=== PATIENT | male | born 1950 | race Caucasian/White ===

== ENCOUNTER → 2019-02-17 | Outpatient (CLI) | payer OTHER, SELFPAY ==
--- NOTE | 2019-02-17 18:30 | RAD_ITS ---
STUDY: X-RAY - LUMBAR SPINE REASON FOR EXAM: Male, 69 years old. Low back pain TECHNIQUE: 3 view(s) of the lumbar spine were obtained. COMPARISON: None FINDINGS: Normal lumbar lordosis. There is no substantial scoliosis. There is a normal alignment of the vertebrae. No evidence for acute fracture or subluxation. There is multilevel chronic wedging of the vertebral bodies, narrowing of the disc spaces and endplate spurring. There is also facet arthropathy at L4-5 and L5-S1. The soft tissue structures are unremarkable. RAD/Lumbar Spine 2 or 3 Views IMPRESSION: Advanced spondylosis. No evidence for acute fracture or subluxation Electronically Signed: Tao Hubbard MD at 18:55 EDT , Service support ,
== END | disposition home or self-care (01) ==
PROVIDERS: Family Provider Family Medicine; PCP Family Medicine; Referring Provider Anesthesiology Pain Medicine; Visit Provider Anesthesiology Pain Medicine
DX: M54.9 Dorsalgia, unspecified (principal)
CPT/HCPCS: 72100

== ENCOUNTER → 2019-03-03 06:22 | Outpatient (CLI) | payer OTHER, SELFPAY ==
--- NOTE | 2019-03-03 06:38 | MRI_ITS ---
STUDY: MRI LUMBAR SPINE WITHOUT CONTRAST REASON FOR EXAM: Male, 69 years old. Lower back pain. Left leg pain TECHNIQUE: Standardized fat and water weighted pulse sequences were obtained in the sagittal and axial planes. COMPARISON: None FINDINGS: T12-L1: Normal endplates. Normal disc height, hydration and morphology. Normal bilateral facet joints. Normal central canal and bilateral lateral recesses. Normal bilateral intervertebral neural foramina. Normal lumbar lordosis. There is no substantial scoliosis. Normal conus medullaris that terminates at the L1 level. L1-2: Endplate spondylosis. Decreased disc height and small circumferential disc bulge. Degenerative changes of the bilateral facet joints. Mild narrowing of the central canal and bilateral intervertebral neural foramina. L2-3: Normal endplates. Normal disc height, hydration and morphology. Normal bilateral facet joints. Normal central canal and bilateral lateral recesses. Normal bilateral intervertebral neural foramina. L3-4: Endplate spondylosis. Decreased disc height and small circumferential disc bulge. Degenerative changes of the bilateral facet joints. Moderate narrowing of the central canal and bilateral intervertebral neural foramina. L4-5: Endplate spondylosis. Decreased disc height and small circumferential disc bulge. Degenerative changes of the bilateral facet joints. Mild narrowing of the central canal and moderate narrowing of the bilateral intervertebral neural foramina. L5-S1: Endplate spondylosis. Decreased disc height and small circumferential disc bulge. Degenerative changes of the bilateral facet joints. Mild narrowing of the central canal and severe narrowing of the bilateral intervertebral neural foramina. Normal visualized sacral ala. There is a right renal cyst. MRI/Spine Lumbar (Routine) IMPRESSION: Multilevel degenerative changes, as described above. There is a right renal cyst measures 3 cm. Electronically Signed: Casper Bo, at 7:35 EDT Tel , Service support ,
== END ==
PROVIDERS: Family Provider Family Medicine; PCP Family Medicine; Referring Provider Anesthesiology Pain Medicine; Visit Provider Anesthesiology Pain Medicine
DX: M54.9 Dorsalgia, unspecified (principal); M79.606 Pain in leg, unspecified
CPT/HCPCS: 72148

== ENCOUNTER → 2019-03-18 16:00 | Outpatient (CLI) | payer OTHER, SELFPAY ==
--- NOTE | 2019-03-18 16:03 | RAD_ITS ---
STUDY: X-RAY - PELVIS AND LEFT HIP REASON FOR EXAM: Male, 69 years old. Severe left hip pain, no injury TECHNIQUE: 3 views of the pelvis and hip. COMPARISON: None. FINDINGS: There is a non-specific bowel gas pattern. Normal visualized soft tissue structures. Normal bilateral iliac wings, sacroiliac joints and visualized sacrum. Normal bilateral superior and inferior pubic rami. Normal pubic symphysis. Normal bilateral ischial tuberosities. There are severe arthritic changes of the left hip joint. There is flattening, sclerosis and remodeling of the left femoral head and sclerosis with hypertrophic degenerative change of the left acetabulum. The right hip joint appears within normal limits. There are mild degenerative changes of the visualized lower lumbar spine. RAD/HIP, UNI W/ Pelvis 2-3 Views IMPRESSION: Severe osteoarthritic changes of the left hip. There is no evidence of fracture, dislocation, or lytic or blastic osseous process. Electronically Signed: Kingston Soria MD at 23:46 EDT , Service support ,
== END ==
PROVIDERS: Family Provider Family Medicine; PCP Family Medicine; Referring Provider Anesthesiology Pain Medicine; Visit Provider Anesthesiology Pain Medicine
DX: M25.552 Pain in left hip (principal)
CPT/HCPCS: 73502

== ENCOUNTER → 2019-04-30 13:13 | Outpatient (CLI) | payer OTHER, SELFPAY ==
[2019-04-30 09:40] VITALS: BMI 37.2
--- NOTE | 2019-04-30 13:14 | RAD_ITS ---
STUDY: X-RAY - PELVIS AND LEFT HIP REASON FOR EXAM: Male, 69 years old. Pain. TECHNIQUE: 4 views of the pelvis and hip. COMPARISON: None. FINDINGS: There is a non-specific bowel gas pattern. Normal visualized soft tissue structures. There is narrowing with cortical sclerosis and osteophyte formation of the sacroiliac joint consistent with degenerative osteoarthritic changes. Normal bilateral superior and inferior pubic rami. There are degenerative changes of the pubic symphysis with articular narrowing and sclerosis. Normal bilateral ischial tuberosities. Left hip: There is deformity of the left femoral head with sclerosis and subchondral cysts, more severe along the superior articular surface. There is deformity with the osteopenia, subchondral cysts and subarticular sclerosis of the acetabulum. is severe articular joint space narrowing of the hip. RAD/HIP, UNI W/ Pelvis 2-3 Views IMPRESSION: Severe degenerative disease of the left hip. Electronically Signed: Mary Ariza MD at 2:44 EST , Service support ,
== END ==
LOC: HPRAD 13:13
PROVIDERS: Family Provider Family Medicine; PCP Family Medicine; Referring Provider Orthopaedic Surgery; Visit Provider Orthopaedic Surgery
DX: M25.552 Pain in left hip (principal)
CPT/HCPCS: 73502

== ENCOUNTER 2019-05-14 18:00 | Outpatient (RCR) | payer OTHER, SELFPAY ==
[2019-04-30 09:40] VITALS: BMI 37.2
== END 2019-05-14 19:00 | disposition home or self-care (01) ==
LOC: PT 18:00
PROVIDERS: Family Provider Family Medicine; PCP Family Medicine; Referring Provider Orthopaedic Surgery; Visit Provider Orthopaedic Surgery
DX: M47.896 Other spondylosis, lumbar region (principal)
CPT/HCPCS: 97012; 97110; 97161

== ENCOUNTER → 2019-06-27 16:37 | Outpatient (CLI) | payer MEDICARE, OTHER, SELFPAY ==
[2019-06-11 08:42] VITALS: BMI 37.2
--- NOTE | 2019-06-27 16:39 | CT_ITS ---
STUDY: CT BILATERAL HIPS T PELVIS REASON FOR EXAM: Male, 69 years old. Treatment planning protocol CT RADIATION DOSAGE (If Supplied By Facility): CTDIvol = ( 26.63 ) mGy, DLP = ( 1997.37 ) mGycm TECHNIQUE: Transaxial imaging of the pelvis and bilateral hips was performed with oral contrast, and without intravenous administration of contrast material. Individualized dose optimization techniques were used for this CT. COMPARISON: None. FINDINGS: Treatment planning measurement CT was performed. 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 There is xleo-[id number]-irgufrcc subchondral cystic degenerative change in the superior acetabulum. The rest of the bones of the pelvis are intact and located. Soft tissues are unremarkable. CT/Extremity Lower without Contra IMPRESSION: 1. Treatment planning scan. 2. End-stage degenerative change of the left hip. Electronically Signed: Amie Ny, at 19:18 EST Tel , Service support ,
--- NOTE | 2019-06-27 17:00 | CT_ITS ---
STUDY: CT BILATERAL KNEE WITHOUT CONTRAST REASON FOR EXAM: Male, 69 years old. FAREED REID DESI PLANNING FOR ROBOTIC REID OF LT SIDE, C/O LT HIP PAIN RADIATION DOSAGE (If Supplied By Facility): CTDIvol = ( 26.63 ) mGy, DLP = ( 1997.37 ) mGycm TECHNIQUE: Transaxial CT imaging of the knee was performed. Coronal and sagittal images were reformatted. Individualized dose optimization techniques were used for this CT. COMPARISON: None. FINDINGS: Both knees were scanned simultaneously. Both knees are intact and located with moderate to advanced degenerative changes in all 3 compartments. There is a cystic degenerative cavity in the left lateral femoral condyle. CT/Extremity Lower without Contra IMPRESSION: Bilateral degenerative changes for preoperative treatment planning. Left lateral femoral condyle subchondral cystic cavity. Electronically Signed: Amie Ny, at 19:16 EST Tel , Service support ,
== END ==
PROVIDERS: Family Provider Family Medicine; PCP Family Medicine; Referring Provider Orthopaedic Surgery; Visit Provider Orthopaedic Surgery
DX: M16.12 Unilateral primary osteoarthritis, left hip (principal)
CPT/HCPCS: 73700

== ENCOUNTER → 2019-07-02 11:42 | Outpatient (CLI) | payer MEDICARE, OTHER, SELFPAY ==
[2019-06-11 08:42] VITALS: BMI 37.2
--- NOTE | 2019-07-02 11:49 | RAD_ITS ---
STUDY: X-RAY CHEST REASON FOR EXAM: Male, 69 years old. Pre op evaluation TECHNIQUE: Complete chest, minimum of four views COMPARISON: None. FINDINGS: Cardiac silhouette unremarkable. Pulmonary vascularity unremarkable. Aorta unremarkable. No focal airspace consolidation. Question small noncalcified nodules right mid lung measuring up to 5 mm. No pleural effusions. Upper abdomen unremarkable. Visualized spine demonstrates multilevel degenerative disease. No pneumothorax. RAD/Chest PA and Lateral IMPRESSION: No acute cardiopulmonary findings. Question pulmonary nodules. Consider chest CT as clinically indicated. Electronically Signed: Rosendo Jimenez, at 12:21 EST Tel , Service support ,
[2019-07-02 14:24] LABS: Hematocrit 44.3 % (40-54); Hemoglobin 15.6 g/dL (13.0-16.5); Mean Corp Hgb Conc 35.2 g/dL (32-36); Mean Corpuscular Hgb 30.6 pg (27.0-32.0); POSITIVE COUNT YES; RBC Distribution Width SD 38.4 fl (35.1-43.9); Red Blood Count 5.09 M/mm3 (4.6-6.2); White Blood Count 11.2 K/mm3 (4.4-11.0)
[2019-07-02 14:27] LABS: International Normalized Ratio 1.1; Prothrombin Time (Protime)PT. 14.1 SECONDS (11.7-14.9)
[2019-07-02 14:28] LABS: Partial Thromboplast Time 42.2 Seconds (24.1-36.2)
[2019-07-02 14:45] LABS: ALB/GLOB Ratio 1.1 RATIO (0.9-2.4); AST(SGOT) 14 U/L (15-37); Alanine Aminotransfer ALT/SGPT 32 U/L (16-61); Albumin, Serum 3.9 g/dL (3.2-5.0); Alkaline Phosphatase 83 U/L (45-117); Anion Gap 6 (5-15); BUN 16 mg/dL (7-18); BUN/Creat Ratio 16.6 RATIO (10-20); Calcium,Total 8.8 mg/dL (8.5-10.1); Chloride 106 mmol/L (98-107); Creatinine, Serum 0.96 mg/dL (0.70-1.30); EST Glomerular Filtration Rate 83 mL/min (>60); Est Glom Filt Rate - Afr Amer 100 mL/min (>60); Globulin 3.6 g/dL (2.2-4.2); Glucose 102 mg/dL (74-106); Potassium 3.9 mmol/L (3.5-5.1); Protein, Total 7.5 g/dL (6.4-8.2); Sodium Level 138 mmol/L (136-145); Thyroid Stim Hormone (TSH) 0.81 uIU/mL (0.358-3.74)
[2019-07-02 14:53] LABS: Platelet Count 44 K/mm3 (150-450); Scan Indicated on CBC? Y/N YES- FLAGS NOTED
[2019-07-02 14:54] LABS: Differential Comment SCANNED
[2019-07-03 14:34] LABS: Pathologist Review Reviewed
== END ==
PROVIDERS: Family Provider Family Medicine; PCP Family Medicine; Referring Provider Family Medicine; Visit Provider Family Medicine
DX: Z01.818 Encounter for other preprocedural examination (principal); I10 Essential (primary) hypertension; D69.6 Thrombocytopenia, unspecified
CPT/HCPCS: 36415; 71046; 80053; 84443; 85027; 85610; 85730

== ENCOUNTER → 2019-07-07 09:15 | Outpatient (CLI) | payer MEDICARE, OTHER, SELFPAY ==
[2019-06-11 08:42] VITALS: BMI 37.2
[2019-07-07 10:36] LABS: Hemoglobin 16.8 g/dL (13.0-16.5); Mean Corpuscular Hgb 30.9 pg (27.0-32.0); Mean Corpuscular Volume 88.2 fL (80-94); Mean Platelet Vol. 13.7 fl (6.2-12.0); POSITIVE COUNT YES; RBC Distribution Width SD 38.6 fl (35.1-43.9); Red Blood Count 5.44 M/mm3 (4.6-6.2); White Blood Count 11.1 K/mm3 (4.4-11.0)
[2019-07-07 10:48] LABS: Platelet Count 40 K/mm3 (150-450); Scan Indicated on CBC? Y/N YES- FLAGS NOTED
[2019-07-08 09:55] LABS: Pathologist Review Reviewed
== END ==
PROVIDERS: Family Provider Family Medicine; PCP Family Medicine; Referring Provider Family Medicine; Visit Provider Family Medicine
DX: D69.6 Thrombocytopenia, unspecified (principal)
CPT/HCPCS: 36415; 85027

== ENCOUNTER 2019-08-12 05:29 | Observation (INO) | payer MEDICARE, OTHER, SELFPAY ==
[2019-06-11 08:42] VITALS: BMI 37.2
[2019-07-08 11:20] VITALS: BMI 37.2
[2019-08-08 08:27] VITALS: BMI 37.6
[2019-08-12] VITALS (11 sets, daily range): BP systolic 105–144; BP diastolic 59–87; PULSE 71–100; RESP 14–18; TEMP 36.1–37.3; O2SAT 97–100; BMI 39.5
[2019-08-12] MEDS: Magnesium Sulfate 4gm/100mL 4 GM/100 ML IV.SOLN. IV (06:15)
[2019-08-12] MEDS: Scopolamine 1mg/72hr Patch 1 PATCH TRANSDERM. (06:16)
[2019-08-12] MEDS: Acetaminophen 500 MG Tablet 1000 MG PO ×3 (06:16→21:00)
[2019-08-12] MEDS: Gabapentin 600 MG Tablet PO (06:16)
[2019-08-12] MEDS: Lactated Ringers 1,000 ML 100 ML IV (06:22)
[2019-08-12 06:55] LABS: Bedside Glucose 107 mg/dL (70-110)
[2019-08-12] MEDS: Lidocaine/D5W 2,000 MG/250 ML IV.SOLN 2000 MG (07:28)
[2019-08-12] MEDS: Lidocaine/D5W 2,000 MG/250 ML IV.SOLN 40 MG IV (07:45)
[2019-08-12] MEDS: dexAMETHasone 10 MG/ML Vial IV (08:00)
[2019-08-12] MEDS: Lactated Ringers 1,000 ML 125 ML IV ×3 (09:35→21:00)
--- NOTE | 2019-08-12 10:54 | HP.PCM_ITS ---
History and Physical Date of Admission: 08/12/19 [facility] [address] [place] [address] OFFICE VISIT Date of Service: 08/04/19 MR#: [id number] Acct: [id number] Name: CORNELL CARABALLO Rep #: [id number] : 1950 Provider: Abdoul sumner DO Age/Sex: 69/M [place] [facility] [place] Status: Signed Intake Intake Visit Reasons: hip Chief Complaint: left hip Allergies No Known Allergies Allergy (Verified 07/31/19 09:37) Medications Lisinopril [Zestril] 12.5 mg PO DAILY 07/08/19 [History Confirmed 08/04/19] PFSH Social History (Updated 08/04/19 @ 10:50 by Abdoul Ceja DO) Smoking Status: Heavy Smoker (>10/day) HPI hip: Details: Parts of this documentation were recorded by a scribe, this documentation accurately reflects the service provided and the decisions made by me, Abdoul Ceja DO 08/04/19 0756. CORNELL CARABALLO is a 69 year old M here today for F/U on left total hip. Patient is here today to sign surgery consent. He has had his CT of his hip and is cleared by his PCP and Oncology has cleared him for surgery athough they want to give him some pre-operative treatements to keep his platelets high enough for surgery. Denies numbness, tingling or other associated symptoms. States he continues to have left groin pain and some lateral sided hip pain. ROS Musc Reports joint pain, Denies muscle weakness, Denies numbness, Reports stiffness, Denies tingling Neuro No numbness, No tingling Ortho Exam Left Hip Skin/Wound: Yes CDI, No Ecchymosis, No soft tissue swelling, No Erythema Hip: Absent eccymosis, soft tissue swelling or erythema internal rotation @90 degree flexion: 0 degrees external rotation @90 degree extension: 68 degrees Special Tests: Yes FADIR and FADER Homans Sign: No HIP: good pulses. 2/4 PT/DP intact plantar/dorsiflexion light touch intact. Supplemental Info 04/30/2019 x-ray left hip: Advanced left hip degenerative joint disease with femoral head collapse large subchondral cysts large osteophytes 03/03/2019 MRI lumbar spine: Severe L5-S1 foraminal narrowing bilaterally moderate narrowing bilateral neural foramina L4-L5 02/17/2019 x-ray lumbar spine advanced endplate spurring with vertebral height compression multilevel facet arthrosis Assessment & Plan Problems 1. Primary osteoarthritis of left hip M16.12 Plan Reviewed the pre-operative plans with the patient. Risks and benefits of the procedure were fully explained, including but not limited to infection, neurovascular injury, continued pain, arthritis, stiffness, need for further surgery, re-injury, DVT, PE, general risks of anesthesia, and loss of limb or life. The patient understands all the risks and does wish to proceed with written consent. Patient educated that he will be in the hospital for 1 days post op and we will need to monitor his platlet count closly. Follow up in 2 wks post op or sooner if pain, swelling, numbness or associated symptoms, or concerns develop. All questions answered. Patient in agreement of plan. Coding Level of Care Code Off vis,est,level 2 Diagnoses Primary osteoarthritis of left hip M16.12 08/04/19 1050 <Electronically signed by Abdoul alvarenga DO> Date _ Abdoul Nicholsonignalcira Signature: Date (if applicable) CC: ~ I have re-examined the patient. There are no clinical changes since date of exam
--- NOTE | 2019-08-12 10:55 | PCM.OPRPT ---
Report of Operation Date of Procedure: 08/12/19 Description of Surgical Findings:: Preoperative diagnosis: Left hip DJD Postoperative diagnosis: Same Procedure: CT-guided Makoplasty assisted left total hip arthroplasty Implants: Sohail Accolade II stem size 7, 132 degree neck angle +5 neck length 58 mm Trident II acetabular shell with 20 mm cancellous screw 36 mm ceramic head, eccentric lateralized lipped polyethylene liner Anesthesia: General EBL: 150 cc Complications: None Condition: Stable to PACU Indication for procedure: This is a 69-year-old male who has had long-standing arthrosis of the hip who has failed conservative treatment and wished to undergo total hip arthroplasty. He does have thrombocytopenia and was treated by oncology with preoperative transfusions, we did discuss operative versus nonoperative intervention including risks of bleeding, infection , nerve artery tissue damage, need for further surgery, fracture, leg length discrepancy dislocation blood clot and need for postoperative physical therapy and postoperative expectations. An informed consent was signed. Procedure: Patient was met in the preoperative holding area once again the operative extremity was identified by both patient and physician and was marked. Patient was met by anesthesia general anesthesia was started. patient was then positioned in the lateral decubitus position on a well-padded pegboard with an axillary roll. All bony prominences were checked and padded. The patient was prepped and draped in the usual sterile fashion. A timeout was called to ensure the proper patient procedure and extremity were being contemplated. Anatomic landmarks were palpated and marked for a standard posterior lateral approach. Prior to this the ASIS was palpated and 3 fingerbreadths proximal to this 3 pins were placed at a 45 degree angle into the iliac crest with good purchase, stab incisions were made with a 15 blade into the skin prior to placement. The Makoplasty array was then secured. A 10 blade scalpel was used to make a posterior incision through the skin and subcutaneous tissue. retractors were used and electrocautery was used to maintain meticulous hemostasis and dissect full-thickness flaps until the gluteal fascia was reached. The gluteal fascia was incised in line with the gluteal fibers. The bursal tissue was then freed from the underside and a Charnley retractor was placed. The femoral trochanteric checkpoint was placed and leg length was assessed using the trochanteric checkpoint and an EKG lead that was placed on the knee prior to prepping the leg .the fat pad was then elevated off of the external rotators with electrocautery and the external rotators were dissected off of the greater trochanter including the piriformis and were tagged with #1 Ethibond for later repair. The joint capsule opened with posterior trapdoor technique. The hip was surgically dislocated. The measurement on the preoperative CT from the top of the lesser trochanter to the femoral neck cut was marked Hohmann was placed around the lesser trochanter. A neck cutting guide was used to tong the neck with a Bovie and an oscillating saw was used complete the femoral neck cut. The femoral head was then removed and sized. We then turned our attention to the acetabulum. A Bovie was used to make a perforation in the anterior joint capsule and a Jones retractor was placed this was repeated in the 6 o'clock position and a wide werner was placed there. With a long handled knife the labral and pulvinar tissue were removed. We then registered the acetabulum with the pointing array and confirmed our landmarks. Also placed a checkpoint in the superior acetabulum and a Steinmann pin was also placed in this location to aid in retraction. Once the socket was thoroughly prepared and labral tissue pulmonary was removed we single reamed with the robotic arm. We then used the robotic arm to position the acetabular implant and impacted it into place under robotic guidance. We then proceeded to place a posterior superior screw by drilling first measuring and inserting the screw. We then inserted a trial liner. There was significantly large osteophytes that were removed with an osteotome and a rongeur and turned our attention back to the femur at this point a femoral elevator was used. As well as a pointed wide Hohmann around the lesser trochanter and a Hohmann to help retract the gluteus medius. A box chisel was used to remove excess lateral neck followed by a canal finder and a lateralizing reamer. This was followed by sequential broaches. Attention was made of the version within the canal based on preoperative templating. Once the final broach was seated we then trialed reduced the hip it was determined that a 132 degree neck angle with a +5 neck length was the appropriate size with lateralized lipped polyethylene liner. We then checked stability with shuck testing as well as flexion and internal rotation. then proceeded with hip extension and checked leg lengths at the knees and heels as well as with the trochanteric checkpoint and knee EKG lead. At this point trials were removed. A liner was inserted to the cup. The femoral stem was inserted. We re-trialed and then proceeded to impact the femoral head onto the Madi taper. We then surgically reduce the hip check stability again and leg lengths and were satisfied. Betadine rinse was allowed to sit for 5 minutes while everyone changed their gloves. Thorough irrigation was performed. Followed by closure of the external rotators with #2 FiberWire followed by closure of gluteal fascia with #1 Ethibond. 0 Vicryl fat stitches and 2-0 Vicryl subcutaneous stitches and leanne in the skin. A pulls were placed in the pin sites over the iliac crest with Xeroform 4 x 4 and OpSite. dressing was applied to incisional area with Mepilex Ag and an abduction pillow was placed. Patient tolerated the procedure well there was no intraoperative complications all counts were correct and the patient was brought back to the PACU in stable condition. Aqua mantis was used throughout the case to minimize postoperative bleeding secondary to thrombocytopenia
--- NOTE | 2019-08-12 11:05 | RAD_ITS ---
STUDY: X-RAY - PELVIS AND LEFT HIP REASON FOR EXAM: Male, 69 years old. POST OP LEFT HIP TECHNIQUE: 2 views of the pelvis and hip. COMPARISON: Comparison is made with prior examination dated April 30, 2019. FINDINGS: The patient is status post left total hip replacement. There is good alignment. Postoperative soft tissue changes. RAD/Hip Min 2 Views (Portable) IMPRESSION: Status post left total hip replacement. There is good alignment. Postoperative soft tissue changes. Electronically Signed: Jose E Centeno, at 12:09 EST , Service support ,
[2019-08-12] MEDS: Cefazolin 1 GM/50 ML BAG IV ×2 (12:04→21:00)
[2019-08-12] MEDS: Senna/Docusate Sodium 1 Tablet 2 TABLET PO (21:01)
[2019-08-13] MEDS: Cefazolin 1 GM/50 ML BAG IV (03:30)
[2019-08-13 03:36] VITALS: BP 130/71; PULSE 66; RESP 16; TEMP 36.5; O2SAT 96
[2019-08-13] MEDS: APIXABAN 2.5 MG TABLET PO (06:00)
[2019-08-13] MEDS: Acetaminophen 500 MG Tablet 1000 MG PO (06:00)
[2019-08-13 06:02] LABS: Hemoglobin 11.6 g/dL (13.0-16.5); Mean Corp Hgb Conc 35.2 g/dL (32-36); Mean Corpuscular Hgb 30.2 pg (27.0-32.0); Mean Corpuscular Volume 85.9 fL (80-94); Mean Platelet Vol. 11.9 fl (6.2-12.0); POSITIVE COUNT YES; Platelet Count 73 K/mm3 (150-450); RBC Distribution Width CV 12.7 % (11.6-14.6); RBC Distribution Width SD 39.3 fl (35.1-43.9); Red Blood Count 3.84 M/mm3 (4.6-6.2); White Blood Count 12.7 K/mm3 (4.4-11.0)
[2019-08-13 06:30] LABS: Anion Gap 3 (5-15); BUN 21 mg/dL (7-18); BUN/Creat Ratio 20.2 RATIO (10-20); Calcium,Total 8.4 mg/dL (8.5-10.1); Chloride 105 mmol/L (98-107); Creatinine, Serum 1.04 mg/dL (0.70-1.30); EST Glomerular Filtration Rate 76 mL/min (>60); Est Glom Filt Rate - Afr Amer 91 mL/min (>60); Estimated Creatinine Clearance 80.14 ml/min; Glucose 115 mg/dL (74-106); Potassium 4.1 mmol/L (3.5-5.1); Sodium Level 135 mmol/L (136-145)
--- NOTE | 2019-08-13 07:22 | DCINST_ITS ---
Discharge Diet: No Restrictions Discharge Activity: Return to Normal Activity, Use Walker Weight Bearing Status: Weight bearing as tolerated Call your doctor if you observe: Fever of 101 or Higher, Shortness of breath, Chest pain Additional Instructions: Begin daily showering warm water antibacterial soap postop day #3( 72hrs Post- operatively) and then daily. Leave the dressing on for 72 hours postoperatively then may remove prior to first shower and change dressing daily after this until no drainage for 2 consecutive days then may leave open to air. Follow hip precautions as reviewed by hospital physical therapist. Wear compression stockings, may remove at night. Start physical therapy as directed in hospital. Call with any concerns. Will consult with patient's oncologist in regards to continued anticoagulation with low platelets 73,000 on day of discharge. Will discuss with Dr. Oneil in regards to next platelet check and anticoagulation. Allergies/Adverse Reactions: Allergies No Known Allergies Allergy (Verified 08/12/19 06:08) Medications to take at Discharge Lisinopril [Zestril] 20 mg PO DAILY 07/08/19 Hydrochlorothiazide [Hctz] 12.5 mg PO DAILY 08/12/19 Primary Care Physician: Bowen Robles MD [Primary Care Provider] - Test Results: Test results from this visit will be discussed in further detail at your follow- up appointment, if applicable. Please Follow Up With: Abdoul Ceja DO - 2 weeks
--- NOTE | 2019-08-13 07:27 | PCM.DC.SUM ---
Discharge Date and Diagnosis - Problem List Patient Problems: Active and Suspected Problems (Last Reviewed 07/31/19 @ 09:37 by Yolis Jackson) Thrombocytopenia (Acute) Abnormal partial thromboplastin time (PTT) (Acute) Date of Admission: 08/12/19 Date of Discharge: 08/13/19 - Primary Discharge Diagnosis Active and Suspected Problems (Last Reviewed 07/31/19 @ 09:37 by Yolis Jackson) Thrombocytopenia (Acute) Abnormal partial thromboplastin time (PTT) (Acute) - Secondary Discharge Diagnosis Chronic Problems (Last Reviewed 07/31/19 @ 09:37 by Yolis Jackson) Chronic ITP (idiopathic thrombocytopenia) (Chronic) Hospital Course and Treatment Summary of Care Provided: The patient is a 69 year old M patient with 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 Patient underwent left Austyn assisted total hip arthroplasty day of admission. Patient does have ITP and was treated preoperatively with platelet transfusions . We did coordinate with Dr. Oneil in regards to this. patient did receive pre-and postoperative antibiotics which were discontinued within 23 hours postoperatively. Patient did receive general anesthesia taken August to ITP and postoperatively her pain was controlled with both IV and p.o. pain medication. Patient did receive 2 g of tranexamic acid. Her hemoglobin and hematocrit were monitored postoperatively as well as her vital signs and she did not require any blood transfusion. Dressing will be changed daily beginning postop day #3 before shower will be removed and replaced after. Pt was started on Eliquis 2.5 mg twice daily postop day #1 for which will continue for 3 weeks post hospital discharge . Patient was seen by physical therapy was ambulating the halls well. patient will be discharged home with home health correction physical therapy will follow-up in the office in 2 weeks. No intrahospital complications. We will continue to coordinate postoperative care with Dr. Oneil in regards to monitoring platelets and anticoagulation use. Patient Problems: Active and Suspected Problems (Last Reviewed 07/31/19 @ 09:37 by Yolis Jackson) Thrombocytopenia (Acute) Abnormal partial thromboplastin time (PTT) (Acute) Subjective: Doing well pain controlled ambulating halls with therapy no fevers chills nausea vomiting shortness of breath chest pain does complain of some muscle spasms - Physical Exam Vitals/I&O's: Vital Signs Temp Pulse Resp BP Pulse Ox 97.7 F L 66 16 130/71 H 96 08/13/19 03:36 08/13/19 03:36 08/13/19 03:36 08/13/19 03:36 08/13/19 03:36 Oxygen Flow Rate (L/min) 6 Oxygen Delivery Method Room Air Weight: 307 lb 15.772 oz Body Mass Index (BMI) 39.5 Intake and Output for Last 24 Hours 08/11/19 08/12/19 08/13/19 23:59 23:59 23:59 Intake Total 5080.83 / 5080.83 830 / 830 Output Total 300 / 300 Balance 4780.83 / 4780.83 830 / 830 General: Alert, Oriented x3, Cooperative, No apparent distress Extremities: - - Dressings clean dry and intact no significant ecchymosis compartments soft mild swelling neurovascular intact EHL tibialis anterior gastrocsoleus intact sensation light touch palpable pedal pulses Laboratory Results 08/12/19 07:50: Blood Type B POSITIVE, Antibody Screen NEGATIVE 08/13/19 05:30: WBC 12.7 H, RBC 3.84 L, Hgb 11.6 L, Hct 33.0 L, MCV 85.9, MCH 30.2, MCHC 35.2, RDW Std Deviation 39.3, RDW Coeff of Carmencita 12.7, Plt Count 73 L, MPV 11.9 08/13/19 05:30: Sodium 135 L, Potassium 4.1, Chloride 105, Carbon Dioxide 27.0, Anion Gap 3 L, BUN 21 H, Creatinine 1.04, Estim Creat Clear Calc 80.14, Est GFR (MDRD) Af Amer 91, Est GFR (MDRD) Non-Af 76, BUN/Creatinine Ratio 20.2 H, Glucose 115 H, Calcium 8.4 L Current Medications Acetaminophen (Tylenol) 1,000 mg PO Q8 [facility] Last Admin: 08/13/19 06:00 Dose: 1,000 mg Documented by: Apixaban (Eliquis) 2.5 mg PO BID [facility] Last Admin: 08/13/19 06:00 Dose: 2.5 mg Documented by: Famotidine (Pepcid) 20 mg PO DAILY [facility] Hydrochlorothiazide () 12.5 mg PO DAILY [facility] Hydromorphone HCl (Dilaudid Inj) 0.5 mg IV Q2H PRN PRN PRN Reason: Pain Score 6-10/10 Sodium Chloride () 250 mls @ 15 mls/hr IV .[id number] PRN PRN Reason: Saline Flush Sodium Chloride () 250 mls @ 15 mls/hr IV .[id number] PRN PRN Reason: Additional IVPB Infusion Lisinopril (Zestril) 20 mg PO DAILY [facility] Ondansetron HCl (Zofran) 4 mg IV Q6H PRN PRN PRN Reason: NAUSEA Oxycodone HCl (Oxyir) 5 - 10 mg PO Q4H PRN PRN PRN Reason: Pain Score 4-10/10 Senna/Docusate Sodium (Senokot-S, Maria Eugenia-Colace) 2 tablet PO BID [facility] Last Admin: 08/12/19 21:01 Dose: 2 tablet Documented by: Sodium Chloride () 5 - 15 ml IV UD PRN PRN Reason: SALINE FLUSH Sodium Chloride () 10 - 40 ml IV UD PRN PRN Reason: SALINE FLUSH Discharge Diet: No Restrictions Discharge Activity: Return to Normal Activity, Use Walker Weight Bearing Status: Weight bearing as tolerated Call your doctor if you observe: Fever of 101 or Higher, Shortness of breath, Chest pain Home Medications: Medications to take at Discharge Lisinopril [Zestril] 20 mg PO DAILY 07/08/19 Hydrochlorothiazide [Hctz] 12.5 mg PO DAILY 08/12/19 Primary Care Physician: Bowen Robles MD [Primary Care Provider] - Please Follow Up With: Abdoul Ceja DO - 2 weeks Additional Instructions: Begin daily showering warm water antibacterial soap postop day #3( 72hrs Post-operatively) and then daily. Leave the dressing on for 72 hours postoperatively then may remove prior to first shower and change dressing daily after this until no drainage for 2 consecutive days then may leave open to air. Follow hip precautions as reviewed by hospital physical therapist. Wear compression stockings, may remove at night. Start physical therapy as directed in hospital. Call with any concerns. Will consult with patient's oncologist in regards to continued anticoagulation with low platelets 73,000 on day of discharge. Will discuss with Dr. Oneil in regards to next platelet check and anticoagulation. Medical Necessity - Tobacco Use Smoking Status: Heavy Smoker (>10/day) Tobacco Use: Cigarettes Meaningful Use Info Meaningful Use Diagnoses (Choose all that apply): None applicable
[2019-08-13 07:57] VITALS: BP 119/48; PULSE 71; RESP 16; TEMP 36.6; O2SAT 97
[2019-08-13] MEDS: Famotidine 20 MG Tablet PO (08:08)
[2019-08-13] MEDS: Senna/Docusate Sodium 1 Tablet 2 TABLET PO (08:08)
--- NOTE | 2019-08-13 08:10 | NURSING ---
scop patch removed from behind right ear per pt request. Pt states mouth is very dry and doesn't feel he needs patch anymore. Area then cleansed with alcohol swab.
--- NOTE | 2019-08-13 08:15 | NURSING ---
This RN called Dr. Goodson's office per Dr. Ceja's request and notified nurse Chelsea of pt current platelet order, d/c med eliquis dosing and timing, and of request to have a plan as to when patient should be retested, or follow up with Dr. Goodson. Understanding verbalized and Chelsea states that she will notify Dr. Goodson when he comes in to the office and notify this RN of information.
[2019-08-13 10:39] VITALS: BP 130/56; PULSE 75; RESP 16; TEMP 36.7; O2SAT 97
[2019-08-13] MEDS: hydroCHLOROthiazide 12.5mg 12.5 MG PO (10:40)
[2019-08-13] MEDS: Lisinopril 20 MG Tablet PO (10:40)
--- NOTE | 2019-08-13 11:35 | CASEMGMT ---
MAURY MCCLELLAN Face to Face with patient for initial transition planning/care coordination assessment. MAURY MCCLELLAN introduced self and role at [facility]. Patient sitting in chair, alert and oriented. Patient willing to participate in assessment and is able to answer all questions appropriately. Care providers, pharmacy, and demographics verified. Patient wishes to discharge home and is setup with [facility] for outpatient therapy. Patient states he has no further needs or concerns at this time. CM to follow for discharge planning needs that may arise. PCP: Margaret Specialists: pete Ceja; Prah, hematology Preferred Pharmacy: [facility] Retail Insurance: [employer], MMO Prescription Benefit: yes Living Will/HPOA: none LNOK: Living Arrangements: Patient lives with in 1 story home with no steps to enter the home. Patient independent prior to surgery. Transportation: DME/HHC: Patient has shower chair, raised toilet seat, cane, hip kit, and rollator. Patient wanting FWW as well, MAURY MCCLELLAN called Marcial's office and requested script. will go to Anahi's office and [place] [facility] [place] therapy setup at [facility] for tomorrow. Disposition Plan: Patient to discharge home with outpatient therapy, family support, and follow-up plans in place. Kyra BOYLE, RN, CM
== END 2019-08-13 12:50 | disposition home or self-care (01) ==
LOC: ACINP 05:46 → MS3 08-13 06:22 → ACINP 08-13 08:55 → MS3 08-13 08:56
PROVIDERS: Admitting Provider Orthopaedic Surgery; Family Provider Family Medicine; PCP Family Medicine; Referring Provider Orthopaedic Surgery; Visit Provider Orthopaedic Surgery
PROC: 8E0Y0CZ Robotic Assisted Procedure of Lower Extremity, Open Approach (ICD-10-PCS; CPT 27130; principal; 2019-08-12 07:00)
DX: M16.12 Unilateral primary osteoarthritis, left hip (principal); F17.210 Nicotine dependence, cigarettes, uncomplicated; D69.3 Immune thrombocytopenic purpura; Z79.899 Other long term (current) drug therapy; R79.1 Abnormal coagulation profile
CPT/HCPCS: 01214; 27130; S2900; 36415; 73502; 80048; 82962; 85027; 86850; 86900; 86901; 87081; 96361; 96365; 96366; 97110; 97116; 97162; 97166; 99218; 99251; 99406; C1713; C1776; J7120; G0378; G0379; G0463; J2405

== ENCOUNTER 2019-09-09 08:00 | Outpatient (RCR) | payer MEDICARE, OTHER, SELFPAY ==
[2019-06-11 08:42] VITALS: BMI 37.2
[2019-08-04 08:12] VITALS: BMI 37.6
[2019-08-12 06:10] VITALS: BMI 39.5
--- NOTE | 2019-08-18 08:47 | HP.PTEVAL_ITS ---
Patient's Visit Information CORNELL CARABALLO is a 69 year old M referred to Physical Therapy by Abdoul Ceja DO with a diagnosis of L REID. Date of Evaluation: 08/14/19 Physical Therapist: Shaquille Del Rio DPT - Visit Plan Frequency: 2-3x /Week Duration: 4-6 Weeks Plan: 1) Start with ROM, isometrics, walking and modalities for pain. 2) add in non painful functional strengthening. 3) progress gait without AD as pain allows. 4) add in work related task allowing for increased ease in work. - Subjective Findings: Pt. is here today for his initial evaluation with diagnosis of L REID. DOS: 08/12/19 with robotic assistance, post/lat approach. Pt. arrives with FWW with good gait pattern. Pt. reports minimal pain this date, but did have increased pain last night. Pt. has been doing exercises as prescribed at home. Pt. denies N/T, no difficulty breathing, no dizziness, no calf pain. Pt. is taking medication as prescribed. He is hopeful to improve ROM and strength in oder to get back to work . 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 Pt. is sleeping in chair without limitations. - Pain L hip Pain Intensity (Out of 10): 1 Pain Intensity Range: 0, 4 - Objective POSTURE: pt. has decent posture in stance. Slight flexion noted at hips. Pt. has normal wt. shifting and is able to stand without AD. PALAPTION: Pt. has no signs of infection. Pt. has bandage on incision, to be taken off next week. NEURO: all intact, normal. ROM: L hip- 90deg flexion, abd 35deg, extension to neutral. Pt. has tight HS. MMT: ankle/knee 5/5 throughout; hip- 3/5 throughout difficulty with abd and flexion. GAIT: Pt. ambulates with FWW for stability. Pt. has decreased L hip extension with increased flexed posture, limited extension during stance phase on LLE. STAIRS: step to pattern with BHR. - Goals Goal 1:: LTG: Pt. to be I with HEP. Goal Time Frame: 4-6 Weeks Goal 2:: STG: Pt. to sleep throughout the night without increase in symptoms. Goal Time Frame: 2-4 Weeks Goal 3:: STG: Pt. to have allowed ROM of L hip with out increase in symptoms. Goal Time Frame: 2-4 Weeks Goal 4:: STG: Pt. to have no pain with walking and all ADLs. Goal Time Frame: 2-4 Weeks Goal 5:: LTG: Pt. to ambulate unlimited distances and negotiate steps without AD withtou limitations or increase in symptoms. Goal Time Frame: 4-6 Weeks Goal 6:: LTG: Pt. return to work without limitations. Goal Time Frame: 6-8 Weeks - Rehabilitation Potential Physical Therapy Diagnosis: Pt. has signs and symptoms consistent with L TKA. P t. is doing well, but has limited ROM, and decreased strength effecting his mobility and ambulation. Pt. would benefit from PT to address above limitation progressing back to all work and ADLs without limitations. Rehabilitation Potential: Excellent - Anticipated Interventions Patient/Client Instruction: Educate patient on: Condition, Plan of Care, Risk Factors, Benefits of Fitness Program For the Purpose of:: To foster healthy habits, To improve decision making, To facilitate caregiver knowledge, To improve self management, To prevent re- injury, To improve ability to perform tasks related to life management, To improve tolerance to ADL's Therapeutic Exercise to Include: Strength training, Power training, Postural training, Flexibilty training, Gait and locomotor training, Passive ROM, Active ROM, Dynamic Lumbar Stabilization For the Purpose of:: To decrease pain, To decrease swelling/inflammation, To increase ROM, To improve nutrient delivery to tissue, To increase oxygenation perfusion, To improve muscle performance and motor function, To improve ability to perform ADL's, To increase tolerance to activity/condition/position, To improve gait and locomotor functions, To improve health of tissue, To decrease soft tissue restriction IF ES: Yes Cryotherapy (ice pack, ice massage): Yes For the Purpose of:: To decrease pain, To decrease swelling/inflammation, To increase ROM, To improve nutrient delivery to tissue Thank you for the opportunity to evaluate your patient. For Medicare and Medicare HMO plans, please review the plan of care and approve it. It will need to be FAXED BACK to us at [phone] for Medicare purposes. For Medicare only, by signing this I certify the plan of care. Please let me know if there are questions or concerns regarding this plan of care. Physician Signature: Date:
--- NOTE | 2019-09-09 10:15 | HP.PTREVAL_ITS ---
Abdoul Ceja, DO, It has been my pleasure to treat CORNELL CARABALLO over the last 5 visits for L REID. Please see the progress note below for an update on the physical therapy plan of care! Subjective: Pt arrives today without AD. Pt. reports being compliant with all HEP and walking. pt. was able to walk out in community without issues. 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 Pt. reports overall being 95% better. Objective/Function: Pt. is dogin very well. Pt. had good ROM and good strength. Pt. reports no pain with walking, stairs and with exercises. Pt. is back to walking without AD. Pt. was able to negotiate 2 fligth of stairs with1 HR without adverse pattern and no increase in symptoms. Pt. reports no N/T. He is hopeful to get back to work by the end of the month. Pt. is follow up with physician 09/21. Pt. is independent with his program at this point in time. Pt. is pleased with progress. I would like patient to continue on his own for a week until he follows up with physician. Plan Plan: Pt. to continue with his PT with HEP and focus on walking. He is doing very well. He is to follow up with physician next week. Pt. hopeful to return to work at that point in time. Goals Goal 1:: LTG: Pt. to be I with HEP. Goal Time Frame: 4-6 Weeks Goal Progress: Goal Met Goal 2:: STG: Pt. to sleep throughout the night without increase in symptoms. Goal Time Frame: 2-4 Weeks Goal Progress: Goal Met Goal 3:: STG: Pt. to have allowed ROM of L hip with out increase in symptoms. Goal Time Frame: 2-4 Weeks Goal Progress: Goal Met Goal 4:: STG: Pt. to have no pain with walking and all ADLs. Goal Time Frame: 2-4 Weeks Goal Progress: Goal Met Goal 5:: LTG: Pt. to ambulate unlimited distances and negotiate steps without AD withtou limitations or increase in symptoms. Goal Time Frame: 4-6 Weeks Goal Progress: Goal Met Goal 6:: LTG: Pt. return to work without limitations. Goal Time Frame: 6-8 Weeks Goal Progress: Progressing Anticipated Interventions Patient/Client Instruction: Educate patient on: Condition, Plan of Care, Risk Factors, Benefits of Fitness Program For the Purpose of:: To foster healthy habits, To improve decision making, To facilitate caregiver knowledge, To improve self management, To prevent re- injury, To improve ability to perform tasks related to life management, To improve tolerance to ADL's Therapeutic Exercise to Include: Strength training, Power training, Postural training, Flexibilty training, Gait and locomotor training, Passive ROM, Active ROM, Dynamic Lumbar Stabilization For the Purpose of:: To decrease pain, To decrease swelling/inflammation, To increase ROM, To improve nutrient delivery to tissue, To increase oxygenation perfusion, To improve muscle performance and motor function, To improve ability to perform ADL's, To increase tolerance to activity/condition/position, To improve gait and locomotor functions, To improve health of tissue, To decrease soft tissue restriction IF ES: Yes Cryotherapy (ice pack, ice massage): Yes For the Purpose of:: To decrease pain, To decrease swelling/inflammation, To increase ROM, To improve nutrient delivery to tissue Please do not hesitate to contact me at [phone] by phone or if you have questions or concerns regarding this new plan of care! Sincerely, Shaquille Del Rio DPT
--- NOTE | 2020-04-02 12:58 | HP.PTDCNRP_ITS ---
CORNELL CARABALLO was seen in my office for initial evaluation on 08/14/19. The following Plan of Care was established for this patient: Initial Frequency: 2-3x /Week Initial Duration: 4-6 Weeks Patient/Client Instruction: Educate patient on: Condition, Plan of Care, Risk Factors, Benefits of Fitness Program For the Purpose of:: To foster healthy habits, To improve decision making, To facilitate caregiver knowledge, To improve self management, To prevent re- injury, To improve ability to perform tasks related to life management, To improve tolerance to ADL's Therapeutic Exercise to Include: Strength training, Power training, Postural training, Flexibilty training, Gait and locomotor training, Passive ROM, Active ROM, Dynamic Lumbar Stabilization For the Purpose of:: To decrease pain, To decrease swelling/inflammation, To increase ROM, To improve nutrient delivery to tissue, To increase oxygenation perfusion, To improve muscle performance and motor function, To improve ability to perform ADL's, To increase tolerance to activity/condition/position, To improve gait and locomotor functions, To improve health of tissue, To decrease soft tissue restriction IF ES: Yes Cryotherapy (ice pack, ice massage): Yes For the Purpose of:: To decrease pain, To decrease swelling/inflammation, To increase ROM, To improve nutrient delivery to tissue This patient was last seen in our office 09/09/19. Pertinent comments regarding their Physical therapy will appear below: Pt. was seen for his L total hip replacement. Pt. was doing great at our last appointment and was to continue with HEP on his own. Pt. was to follow up with PT if needed. Pt. has not been seen in several months and will be DC from PT at this point in time. At this point I will be discontinuing this patient from physical therapy. I would be happy to see this patient again in the future if found appropriate by the physician. Thank you! Shaquille Del Rio DPT
== END 2019-09-09 19:00 | disposition home or self-care (01) ==
LOC: PT 08:00
PROVIDERS: PCP Family Medicine; Referring Provider Orthopaedic Surgery; Visit Provider Orthopaedic Surgery
DX: Z47.1 Aftercare following joint replacement surgery (principal); Z96.642 Presence of left artificial hip joint
CPT/HCPCS: 97110; 97161

== ENCOUNTER → 2020-06-22 15:33 | Outpatient (CLI) | payer MEDICARE, OTHER, SELFPAY ==
[2019-10-16 15:24] VITALS: BMI 38.7
--- NOTE | 2020-06-22 15:35 | CT_ITS ---
STUDY: LOW DOSE CT LUNG CANCER SCREENING REASON FOR EXAM: Male, 70 years old. LUNG SCREENING, 50 YR SMOKER X 1 PPD RADIATION DOSAGE (If Supplied By Facility): CTDIvol = ( 4.02 ) mGy, DLP = ( 153.00 ) mGycm TECHNIQUE: No contrast was administered. Low dose technique was utilized (average mAS-38 and kVp 120). 1.25 mm axial source images with a slice interval of 1.25-mm were reconstructed in lung windows. 2.5 mm axial source images with a slice interval of 2.5-mm were reconstructed in lung windows. 5.0 mm axial source images with a slice interval of 5.0-mm were reconstructed in soft tissue windows. Nodule measured using lung windows on PACS and/or independent workstation with automated measurement of minimum and maximum diameter. Nodule measurement reported as average diameter rounded to the nearest whole number. Growth is defined as an increase ins size of greater than 1.5 mm. COMPARISON: Chest x-ray dated July 02, 2019 FINDINGS: Total lung nodules (excluding granulomas): None Granulomas: A 5.6 mm partially calcified granuloma is present in the anterior lateral aspect of the right lower lobe see image #[id number]. A 4.6 mm nodule is present medial aspect of the left upper lobe. Since speckles of calcium are seen within this nodule which is likely an incompletely calcified granuloma. A 4 mm calcified granuloma seen in the medial basilar segment of the right lower lobe see image #[id number] series 2. [place] shaped nodular fibrosis and linear scarring is present in the lower one third and lateral aspect of the left lower lobe. Emphysema: Diffuse emphysematous cysts are present throughout both lungs which are hyperinflated. Endobronchial lesion: None There is hyperinflation of the lungs consistent with chronic obstructive lung disease (COPD). There is no demonstrated pleural abnormality. Normal heart size and pericardium. There are calcifications of the coronary arteries. Normal mediastinum. Normal hilar regions. Normal unenhanced pulmonary arteries. There is atherosclerotic tortuosity of the aortic arch and descending thoracic aorta. There are multi-level degenerative changes of the thoracic spine. There is no demonstrated abnormality of the visualized upper abdomen. CT/Low Dose CT Lung Screening IMPRESSION: 1. COPD/emphysema 2. Several benign granulomas as well as nodular fibrosis 3. Lung-RADS category 1 - Continue annual screening with LDCT in 12 months. IMPORTANT NOTES FOR USE: ACR Lung-RADS Version 1.0 Assessment Categories Release Date: October 20, 2013 Category: Coded 0-4 bases on nodule(s) with highest degree of suspicion. Negative screen is defined as categories 1 and 2; a positive screen is defined as categories 3 and 4. Category 3 and 4A nodules that are unchanged on interval CT should be coded as category 2, and individuals returned to screening in 12 months. Category 4X: Category 3 or 4 nodules with additional imaging findings that increase the suspicion of lung cancer, such as spiculation, GGN that doubles in size in 1 year, enlarged lymph notes, etc. Category Modifiers: S (significant finding unrelated to lung cancer) and C (prior history of treated lung cancer) may be added to the 0-4 Lung-RADS Electronically Signed: Elia Ford MD at 17:46 EST , Service support ,
== END ==
PROVIDERS: PCP Family Medicine; Referring Provider Family Medicine; Visit Provider Family Medicine
DX: F17.210 Nicotine dependence, cigarettes, uncomplicated (principal)
CPT/HCPCS: G0297

== ENCOUNTER → 2020-12-10 08:31 | Outpatient (CLI) | payer MEDICARE, OTHER, SELFPAY ==
[2019-10-16 15:24] VITALS: BMI 38.7
[2020-12-10 09:47] LABS: Hematocrit 45.8 % (40-54); Hemoglobin 15.7 g/dL (13.0-16.5); Mean Corp Hgb Conc 34.3 g/dL (32-36); Mean Corpuscular Volume 87.4 fL (80-94); Mean Platelet Vol. 13.9 fl (6.2-12.0); POSITIVE COUNT YES; RBC Distribution Width CV 12.1 % (11.6-14.6); RBC Distribution Width SD 38.8 fl (35.1-43.9); Red Blood Count 5.24 M/mm3 (4.6-6.2); White Blood Count 11.2 K/mm3 (4.4-11.0)
[2020-12-10 09:49] LABS: Scan Indicated on CBC? Y/N YES- FLAGS NOTED
[2020-12-10 10:17] LABS: Anion Gap 4 (5-15); BUN 15 mg/dL (7-18); BUN/Creat Ratio 13.9 RATIO (10-20); Chloride 105 mmol/L (98-107); Cholesterol 154 mg/dL (200); Creatinine, Serum 1.08 mg/dL (0.70-1.30); EST Glomerular Filtration Rate 72 mL/min (>60); Est Glom Filt Rate - Afr Amer 87 mL/min (>60); Glucose 100 mg/dL (74-106); High Density Lipoprotein 36 mg/dL; PSA,Total - Annual Screen 3.66 ng/mL (0.00-4.00); Potassium 4.1 mmol/L (3.5-5.1); Sodium Level 138 mmol/L (136-145); Triglycerides 85 mg/dL; Very Low Density Lipoprotein 17 mg/dL (5-40)
[2020-12-10 10:42] LABS: Differential Comment SCANNED; Platelet Count 46 K/mm3 (150-450)
[2020-12-13 12:38] LABS: Pathologist Review Reviewed
== END ==
PROVIDERS: PCP Family Medicine; Referring Provider Family Medicine; Visit Provider Family Medicine
DX: I10 Essential (primary) hypertension (principal); Z13.220 Encounter for screening for lipoid disorders; Z12.5 Encounter for screening for malignant neoplasm of prostate; D69.6 Thrombocytopenia, unspecified
CPT/HCPCS: 36415; 80048; 80061; 84153; 85027; 86769; G0103

== ENCOUNTER → 2021-04-04 10:55 | Outpatient (CLI) | payer MEDICARE, OTHER, SELFPAY ==
--- NOTE | 2021-04-04 10:57 | RAD_ITS ---
STUDY: X-RAY - RIGHT SHOULDER REASON FOR EXAM: Male, 71 years old. contusion and pain TECHNIQUE: 4 view(s) of the shoulder. COMPARISON: None. FINDINGS: Normal glenohumeral articulation. There is hypertrophic osteoarthrosis of the acromioclavicular joint with inferior osseous spur formation. Normal acromion. Normal humeral head and visualized proximal humerus. The soft tissue structures are unremarkable. Normal visualized pulmonary apex. RAD/Shoulder min 2 Views IMPRESSION: No fracture or dislocation. There is hypertrophic osteoarthrosis of the acromioclavicular joint with inferior osseous spur formation. Electronically Signed: Jaziel Wise MD at 17:02 EDT Tel , Service support ,
== END ==
PROVIDERS: PCP Family Medicine; Referring Provider Family Medicine; Visit Provider Family Medicine
DX: S40.011A Contusion of right shoulder, initial encounter (principal)
CPT/HCPCS: 73030

== ENCOUNTER → 2022-04-25 | Outpatient (CLI) | payer MEDICARE, OTHER, SELFPAY ==
[2022-04-25 10:19] LABS: Absolute Lymphocyte Count 1.22 X10^3/uL (0.83-4.51); Absolute Neutrophil Count 8.2 X10^3/uL (2.0-7.7); Basophil# 0.08 X10^3/uL; Basophil% 0.8 % (0-1); Eosinophil# 0.17 X10^3/uL; Eosinophils% 1.6 % (0-5); Hematocrit 44.3 % (40-54); Hemoglobin 15.8 g/dL (13.0-16.5); Lymphocyte # 1.22 X10^3/ul (0.83-4.51); Lymphocyte % 11.5 % (19-41); Mean Corp Hgb Conc 35.7 g/dL (32-36); Mean Corpuscular Hgb 30.3 pg (27.0-32.0); Mean Platelet Vol. 13.8 fl (6.2-12.0); Monocyte# 0.87 X10^3/uL; Monocyte% 8.2 % (0-10); NRBC Flagged by Analyzer 0 % (0-5); Neutrophil # 8.15 X10^3/uL (2.7-7.7); Neutrophil % 77.1 % (47-70); POSITIVE COUNT YES; Platelet Count 45 K/mm3 (150-450); RBC Distribution Width SD 40.1 fl (35.1-43.9); Red Blood Count 5.21 M/mm3 (4.6-6.2)
[2022-04-25 10:28] LABS: Differential Indicated SCAN CRITERIA MET; White Blood Count 10.6 K/mm3 (4.4-11.0)
[2022-04-25 10:43] LABS: AST(SGOT) 17 U/L (15-37); Alanine Aminotransfer ALT/SGPT 24 U/L (16-61); Albumin, Serum 3.8 g/dL (3.2-5.0); Alkaline Phosphatase 78 U/L (45-117); Anion Gap 6 (5-15); BUN 14 mg/dL (7-18); BUN/Creat Ratio 13.3 RATIO (10-20); Calcium,Total 8.9 mg/dL (8.5-10.1); Chloride 104 mmol/L (98-107); Cholesterol 172 mg/dL (200); Creatinine, Serum 1.05 mg/dL (0.70-1.30); EST Glomerular Filtration Rate 74 mL/min (>60); Est Glom Filt Rate - Afr Amer 90 mL/min (>60); Globulin 3.8 g/dL (2.2-4.2); Glucose 101 mg/dL (74-106); High Density Lipoprotein 33 mg/dL; PSA,Total - Annual Screen 4.24 ng/mL (0.00-4.00); Protein, Total 7.6 g/dL (6.4-8.2); Sodium Level 137 mmol/L (136-145); Triglycerides 114 mg/dL; Very Low Density Lipoprotein 23 mg/dL (5-40)
[2022-04-25 11:11] LABS: Microalbumin,Random Urine 10.7 mg/L (NO RANGE EST.)
[2022-04-25 11:16] LABS: Platelet Estimate MKD DEC (ADEQ); Platelet Morphology LARGE
== END | disposition home or self-care (01) ==
PROVIDERS: PCP Family Medicine; Referring Provider Family Medicine; Visit Provider Family Medicine
DX: Z00.00 Encounter for general adult medical examination without abnormal findings (principal); D69.6 Thrombocytopenia, unspecified; I10 Essential (primary) hypertension; Z12.5 Encounter for screening for malignant neoplasm of prostate
CPT/HCPCS: 36415; 80053; 80061; 82043; 84153; 85025; G0103

== ENCOUNTER → 2022-08-28 | Outpatient (CLI) | payer MEDICARE, OTHER, SELFPAY ==
[2022-08-29 15:24] LABS: PSA, Free 0.71 ng/mL; PSA, Free % 18.1 % (.)
== END | disposition home or self-care (01) ==
LOC: MFPLAB 09:27
PROVIDERS: PCP Family Medicine; Visit Provider Family Medicine
DX: R97.20 Elevated prostate specific antigen [PSA] (principal)
CPT/HCPCS: 36415; 84153; 84154

== ENCOUNTER → 2022-10-03 | Outpatient (CLI) | payer MEDICARE, OTHER, SELFPAY ==
[2022-10-03 15:31] LABS: Anion Gap 6 (5-15); BUN 19 mg/dL (7-18); BUN/Creat Ratio 18.4 RATIO (10-20); Chloride 104 mmol/L (98-107); Creatinine, Serum 1.03 mg/dL (0.70-1.30); EST Glomerular Filtration Rate 76 mL/min (>60); Est Glom Filt Rate - Afr Amer 92 mL/min (>60); Glucose 103 mg/dL (74-106); Potassium 4.2 mmol/L (3.5-5.1); Sodium Level 135 mmol/L (136-145)
== END | disposition home or self-care (01) ==
LOC: MFPLAB 11:48
PROVIDERS: PCP Family Medicine; Referring Provider Family Medicine; Visit Provider Family Medicine
DX: I10 Essential (primary) hypertension (principal); R97.20 Elevated prostate specific antigen [PSA]
CPT/HCPCS: 36415; 80048

== ENCOUNTER → 2023-02-01 | Outpatient (CLI) | payer MEDICARE, OTHER, SELFPAY ==
[2023-02-01 10:05] LABS: Hematocrit 44.5 % (40-54); Hemoglobin 14.9 g/dL (13.0-16.5); Mean Corp Hgb Conc 33.5 g/dL (32-36); Mean Corpuscular Hgb 29.7 pg (27.0-32.0); Mean Corpuscular Volume 88.6 fL (80-94); Mean Platelet Vol. 13.9 fl (6.2-12.0); POSITIVE COUNT YES; RBC Distribution Width CV 12.9 % (11.6-14.6); Red Blood Count 5.02 M/mm3 (4.6-6.2); White Blood Count 11.7 K/mm3 (4.4-11.0)
[2023-02-01 10:38] LABS: Anion Gap 6 (5-15); BUN 15 mg/dL (7-18); BUN/Creat Ratio 11.4 RATIO (10-20); Calcium,Total 9.4 mg/dL (8.5-10.1); Chloride 104 mmol/L (98-107); Cholesterol 155 mg/dL (200); Creatinine, Serum 1.32 mg/dL (0.70-1.30); EST Glomerular Filtration Rate 57 mL/min (>60); Est Glom Filt Rate - Afr Amer 69 mL/min (>60); Glucose 105 mg/dL (74-106); High Density Lipoprotein 35 mg/dL; PSA,Total- Diagnostic 4.78 ng/mL (0.0-4.0); Potassium 4.4 mmol/L (3.5-5.1); Sodium Level 138 mmol/L (136-145); Triglycerides 85 mg/dL; Very Low Density Lipoprotein 17 mg/dL (5-40)
[2023-02-01 10:46] LABS: Platelet Count 47 K/mm3 (150-450); Scan Indicated on CBC? Y/N YES- FLAGS NOTED
[2023-02-02 14:19] LABS: Pathologist Review Reviewed
== END | disposition home or self-care (01) ==
LOC: MTLAB 07:39
PROVIDERS: PCP Family Medicine; Visit Provider Family Medicine
DX: I10 Essential (primary) hypertension (principal); D69.6 Thrombocytopenia, unspecified; R97.20 Elevated prostate specific antigen [PSA]
CPT/HCPCS: 36415; 80048; 80061; 84153; 85027

== ENCOUNTER → 2023-09-03 | Outpatient (CLI) | payer MEDICARE, OTHER, SELFPAY ==
[2023-09-03 10:43] LABS: PSA,Total- Diagnostic 3.81 ng/mL (0.0-4.0)
== END | disposition home or self-care (01) ==
LOC: LAB 09:02
PROVIDERS: PCP Family Medicine; Referring Provider Nurse Practitioner; Visit Provider Nurse Practitioner
DX: R97.20 Elevated prostate specific antigen [PSA] (principal)
CPT/HCPCS: 36415; 84153

== ENCOUNTER → 2024-05-20 | Outpatient (CLI) | payer MEDICARE, OTHER, SELFPAY ==
[2024-05-20 15:41] LABS: Absolute Lymphocyte Count 1.12 X10^3/uL (0.83-4.51); Absolute Neutrophil Count 10.7 X10^3/uL (2.0-7.7); Basophil# 0.09 X10^3/uL; Basophil% 0.7 % (0-1); Eosinophil# 0.18 X10^3/uL; Eosinophils% 1.4 % (0-5); Hematocrit 43.1 % (40-54); Hemoglobin 14.9 g/dL (13.0-16.5); Lymphocyte # 1.12 X10^3/ul (0.83-4.51); Lymphocyte % 8.5 % (19-41); Mean Corp Hgb Conc 34.6 g/dL (32-36); Mean Corpuscular Hgb 29.9 pg (27.0-32.0); Mean Corpuscular Volume 86.4 fL (80-94); Mean Platelet Vol. 14.7 fl (6.2-12.0); Monocyte# 1.02 X10^3/uL; Monocyte% 7.7 % (0-10); NRBC Flagged by Analyzer 0 % (0-5); Neutrophil # 10.69 X10^3/uL (2.7-7.7); Neutrophil % 80.9 % (47-70); POSITIVE COUNT YES; Platelet Count 43 K/mm3 (150-450); RBC Distribution Width CV 12.4 % (11.6-14.6); Red Blood Count 4.99 M/mm3 (4.6-6.2); White Blood Count 13.2 K/mm3 (4.4-11.0)
[2024-05-20 15:59] LABS: Differential Indicated SCAN CRITERIA MET
[2024-05-20 16:18] LABS: ALB/GLOB Ratio 0.9 RATIO (0.9-2.4); AST(SGOT) 21 U/L (15-37); Alanine Aminotransfer ALT/SGPT 25 U/L (16-61); Albumin, Serum 3.6 g/dL (3.2-5.0); Alkaline Phosphatase 84 U/L (45-117); Anion Gap 7 (5-15); BUN 18 mg/dL (7-18); BUN/Creat Ratio 16.1 RATIO (10-20); Calcium,Total 9.3 mg/dL (8.5-10.1); Chloride 106 mmol/L (98-107); Cholesterol 108 mg/dL (200); Creatinine, Serum 1.12 mg/dL (0.70-1.30); EST Glomerular Filtration Rate 68 mL/min (>60); Est Glom Filt Rate - Afr Amer 83 mL/min (>60); Glucose 106 mg/dL (74-106); High Density Lipoprotein 33 mg/dL; Potassium 4.1 mmol/L (3.5-5.1); Protein, Total 7.6 g/dL (6.4-8.2); Sodium Level 135 mmol/L (136-145); Thyroid Stim Hormone (TSH) 0.761 uIU/mL (0.358-3.740); Triglycerides 116 mg/dL; Very Low Density Lipoprotein 23 mg/dL (5-40)
[2024-05-20 17:07] LABS: Platelet Estimate MKD DEC (ADEQ); Platelet Morphology GIANT
[2024-05-21 14:26] LABS: Erythrocyte Sedimentation Rate 24 mm/hr (0-20); Pathologist Review Reviewed
[2024-05-23 02:07] LABS: Pancreatic Elastase, Fecal > 800 (>200)
[2024-05-24 07:07] LABS: Calprotectin, Stool 1750 ug/g (0-120)
== END | disposition home or self-care (01) ==
PROVIDERS: PCP Family Medicine; Referring Provider Family Medicine; Visit Provider Family Medicine
DX: R19.7 Diarrhea, unspecified (principal); E78.00 Pure hypercholesterolemia, unspecified
CPT/HCPCS: 36415; 80053; 80061; 82653; 83993; 84443; 85025; 85652; 87177; 87209

== ENCOUNTER → 2025-01-27 | Outpatient (CLI) | payer MEDICARE, OTHER, SELFPAY ==
[2025-01-27 10:58] LABS: Platelet Count 135 K/mm3 (150-450)
--- OUTSIDE RECORDS SUMMARY | 2025-01-27 11:01 | XMS RPT_ITS | CCD ---
Author Organization [facility] Care Team Providers Care Geography Professor Name Role Phone Gage Robles Referring Unavailable Gage Robles Attending Unavailable Gage Robles Primary Care Unavailable Gage Robles Referring Unavailable Gage Robles Attending Unavailable Gage Robles Primary Care Unavailable Medications Current Medications Medication Drug Class(es) Dates Sig (Normalized) Sig (Original) acetaminophen 500 mg oral tablet (3 sources) Start: 08-13-2019 take 1000 mg by mouth every six hours as needed Acetaminophen Active 1000 MG PO EVERY 6 HOURS NEEDED 100 August 13, 2019 8:30am cephalexin 500 mg oral capsule (7 sources) Cephalosporin Antibacterial Start: 03-14-2023 take 2000 mg by mouth once Cephalexin Active 2000 MG PO ONCE 4 March 14, 2023 12:00am take within 1 hr prior to dental procedure. Start: 11-08-2022 End: 12-13-2022 take 4 tablets by mouth every hour Cephalexin Discontinued 2000 MG PO TWICE A DAY 4 November 23, 2022 2:10pm December 13, 2022 1:58pm Take 4 tabs within 1 hour prior to dental procedure hydroCHLOROthiazide 12.5 mg / lisinopril 20 mg oral tablet (3 sources) Thiazide Diuretic, Angiotensin Converting Enzyme Inhibitor Start: 09-15-2019 Lisinopril-Hydrochlorothiazi de Active 1 EACH PO DAILY September 15, 2019 12:00am lisinopril 20 mg oral tablet (1 source) Angiotensin Converting Enzyme Inhibitor Start: 02-20-2023 take 20 mg by mouth once daily Lisinopril Active 20 MG PO DAILY February 20, 2023 12:00am rosuvastatin calcium 5 mg oral tablet (1 source) HMG-CoA Reductase Inhibitor Start: 02-20-2023 take 5 mg by mouth once daily Rosuvastatin Active 5 MG PO DAILY February 20, 2023 12:00am Completed/Discontinued Medications Medication Drug Class(es) Dates Sig (Normalized) Sig (Original) dexamethasone 4 mg oral tablet (3 sources) Corticosteroid Start: 10-01-2019 End: 10-05-2019 take 40 mg by mouth once daily Dexamethasone Discontinued 40 MG PO DAILY@0800 40 4 October 01, 2019 12:00am October 05, 2019 12:02am Problems Active Problems Problem Classification Problem Date Documented Date Episodic/Chronic Coagulation and hemorrhagic disorders (9 sources) Chronic idiopathic thrombocytopenic purpura; Translations: [Immune thrombocytopenic purpura] 07-31-2019 Chronic Other screening for suspected conditions (not mental disorders or infectious disease) (3 sources) Partial thromboplastin time increased; Translations: [Abnormal coagulation profile] 07-17-2019 Episodic Spondylosis; intervertebral disc disorders; other back problems (3 sources) Degeneration of lumbar intervertebral disc; Translations: [Other intervertebral disc degeneration, lumbar region] 04-29-2019 Chronic Substance-related disorders (1 source) Nicotine dependence, cigarettes, uncomplicated; Translations: [Nicotine dependence, cigarettes, uncomplicated] Onset: 01-22-2025 Chronic Past or Other Problems Problem Classification Problem Date Documented Da te Episodic/Chronic Other gastrointestinal disorders (1 source) Diarrhea, unspecified; Translations: [Diarrhea, unspecified] Onset: 07-14-2024 Episodic Results Test Name Value Interpretation Reference Range Facility Miscellaneous Lab Procedureo n 05-27-2024 [facility] Normal [facility] Comment on above: Order Comment: ABN P RINTED OUT [id number] STOOL CULTURE ABN PRINTED OUT [id number] STOOL CULTURE Result Comment: STOO L CULTURE Salmonella/Shigella Screen Final Report Result 1 NO Salmonella or Shigella recovered. Campylobacter Culture Final Report Result 1 NO Campylobacter species isolated. E. coli Shiga Toxin EIA NEGATIVE TESTING PERFORMED AT [facility]. ORIGINAL REPORT ON FILE IN LAB CONTAINS ADDITIONAL TEST SITE INFORMATION. Performed By: #### L 7000.0750, M600.5000, L801.1541, L7000.0700 #### [facility] [address] [place], [place], [address] Ova and Parasites 8623on OP OVA AND PARASITES EXAM, ROUTINE These results were obtained using wet preparation(s) and trichrome stained smear. This test does not include testing for Crytosporidium parvum, Cyclospora, or Microsporidia. One negative specimen does not rule out the possibility of a parasitic infection. TESTING PERFORMED AT [facility]. ORIGINAL REPORT ON FILE IN LAB CONTAINS ADDITIONAL TEST SITE INFORMATION. Ova/Parasite Exam NO OVA, CYSTS, OR PARASITES FOUND. Normal [facility] Comment on above: Performed By: #### L 7000.0750, M600.5000, L801.1541, L7000.0700 #### [facility] [address] [place], [place], [address] Calprotectin, Stoolon [address] 1750 ug/g Abnormal 0-120 [facility] Comment on above: Result Comment: Re sults verified by repeat testing Concentration Interpretation Follow-Up < 5 - 50 ug/g Normal None >50 -120 ug/g Borderline Re-evaluate in 4-6 weeks >120 ug/g Abnormal Repeat as clinically indicated Performed at: [address] [id number] Jewelry Engraver: Nancy Guallpa MD, Phone: [phone] Performed By: #### L 7000.0750, M600.5000, L801.1541, L7000.0700 #### [facility] [address] [place], [address] L7000.0750on 05-23-2024 P ELASTASE,FECA > 800 Normal >200 [facility] Comment on above: Result Comment: Resu lt Units: ug Elast./g Severe Pancreatic Insufficiency: <100 Moderate Pancreatic Insufficiency: 100 - 200 Normal: >200 Performed at: - [address] [id number] Jewelry Engraver: Nancy Guallpa MD, Phone: [phone] Performed By: #### L 7000.0750, M600.5000, L801.1541, L7000.0700 #### [facility] [address] [place], [address] CBC W/Diff, Automatedon 04-26 PATH REV Reviewed Normal [facility] Comment on above: Order Comment: Order Date: 01/08/24 Order Info: [id number] - CBC CRITICAL VALUE CALLED TO RUBY PICKARD 05/20/24 1619 Roxana Lollo. RESULTS READ BACK BY SAME. Result Comment: Neut rophilic leukocytosis. MARKED Thrombocytopenia. Clinical correlation necessary. Angel Lamb M.D. 05/21/24 AMENDED REPORT 05/21/24 1426 PATH REV previously reported as: October Performed By: #### L 501.9520, L500.4050, L100.0100, L101.9900 #### [facility] [address] [place], [address] Erythrocyte Sed Rateon 05-21 SED RATE 24 mm/hr High 0-20 [facility] Comment on above: Order Comment: Order Date: 01/08/24 Order Info: [id number] - CBC CRITICAL VALUE CALLED TO RUBY PICKARD 05/20/24 1619 Roxana Lollo. RESULTS READ BACK BY SAME. Result Comment: Neut rophilic leukocytosis. MARKED Thrombocytopenia. Clinical correlation necessary. Ravindra Dyer D.O. 05/21/24 AMENDED REPORT 05/21/24 1426 SED RATE previously reported as: 24 H mm/hr Performed By: #### L 501.9520, L500.4050, L100.0100, L101.9900 #### [facility] [address] [place], [address] Comprehensive Metabolic Prof ilon 05-20-2024 Albumin [Mass/Vol] 3.6 g/dL Normal 3.2-5.0 [facility] Comment on above: Order Comment: Order Date: 01/08/24 Order Info: 0667-1 - BMP Order Info: [id number] - LIPID Performed By: #### L 501.9520, L500.4050, L100.0100, L101.9900 #### [facility] [address] [place], [address] Albumin/Globulin [Mass ratio] 0.9 {ratio} Normal 0.9-2.4 [facility] Comment on above: Order Comment: Order Date: 01/08/24 Order Info: 0667-1 - BMP Order Info: [id number] - LIPID Performed By: #### L 501.9520, L500.4050, L100.0100, L101.9900 #### [facility] [address] [place], [address] ALK P 84 U/L Normal 45-117 [facility] Comment on above: Order Comment: Order Date: 01/08/24 Order Info: 0667-1 - BMP Order Info: [id number] - LIPID Performed By: #### L 501.9520, L500.4050, L100.0100, L101.9900 #### [facility] [address] [place], [address] ALT [Catalytic activity/Vol] 25 U/L Normal 16-61 [facility] Comment on above: Order Comment: Order Date: 01/08/24 Order Info: 0667-1 - BMP Order Info: [id number] - LIPID Performed By: #### L 501.9520, L500.4050, L100.0100, L101.9900 #### [facility] [address] [place], [address] AST [Catalytic activity/Vol] 21 U/L Normal 15-37 [facility] Comment on above: Order Comment: Order Date: 01/08/24 Order Info: 06- - BMP Order Info: [id number] - LIPID Performed By: #### L 501.9520, L500.4050, L100.0100, L101.9900 #### [facility] [address] [place], [address] Bilirubin [Mass/Vol] 0.60 mg/dL Normal 0.20-1.00 [facility] Comment on above: Order Comment: Order Date: 01/08/24 Order Info: 06 - BMP Order Info: [id number] - LIPID Result Comment: For patients on eltrombopag therapy, use of Dimension [place] TBIL is not recommended. Performed By: #### L 501.9520, L500.4050, L100.0100, L101.9900 #### [facility] [address] [place], [address] BUN/CRE 16.1 RATIO Normal 10-20 [facility] Comment on above: Order Comment: Order Date: 01/08/24 Order Info: 0667- - BMP Order Info: [id number] - LIPID Performed By: #### L 501.9520, L500.4050, L100.0100, L101.9900 #### [facility] [address] [place], [address] CA,Total 9.3 mg/dL Normal 8.5-10.1 [facility] Comment on above: Order Comment: Order Date: 01/08/24 Order Info: 0667-1 - BMP Order Info: [id number] - LIPID Performed By: #### L 501.9520, L500.4050, L100.0100, L101.9900 #### [facility] [address] [place], [address] Chloride [Moles/Vol] 106 mmol/L Normal 98-107 [facility] Comment on above: Order Comment: Order Date: 01/08/24 Order Info: 0667-1 - BMP Order Info: [id number] - LIPID Performed By: #### L 501.9520, L500.4050, L100.0100, L101.9900 #### [facility] [address] [place], [address] CO2 [Moles/Vol] 23.0 mmol/L Normal 21.0-32.0 [facility] Comment on above: Order Comment: Order Date: 01/08/24 Order Info: 0667-1 - BMP Order Info: [id number] - LIPID Performed By: #### L 501.9520, L500.4050, L100.0100, L101.9900 #### [facility] [address] [place], [address] Creatinine [Mass/Vol] 1.12 mg/dL Normal 0.70-1.30 [facility] Comment on above: Order Comment: Order Date: 01/08/24 Order Info: 0667-1 - BMP Order Info: [id number] - LIPID Result Comment: The validity of the calculated GFR GFRAA in patients over 70 years has not been determined. Clinical correlation is essential. Performed By: #### L 501.9520, L500.4050, L100.0100, L101.9900 #### [facility] [address] [place], [address] EST GFR - AA 83 mL/min Normal >60 [facility] Comment on above: Order Comment: Order Date: 01/08/24 Order Info: 0667-1 - BMP Order Info: [id number] - LIPID Result Comment: Afri can [place] GFR Calc Performed By: #### L 501.9520, L500.4050, L100.0100, L101.9900 #### [facility] [address] [place], [address] GAP 7 Normal 5-15 [facility] Comment on above: Order Comment: Order Date: 01/08/24 Order Info: 06- - BMP Order Info: [id number] - LIPID Performed By: #### L 501.9520, L500.4050, L100.0100, L101.9900 #### [facility] [address] [place], [address] GFR/1.73 sq M.predicted among non-blacks MDRD (S/P/Bld) [Vol rate/Area] 68 mL/min/{1.73_m2} Normal >60 [facility] Comment on above: Order Comment: Order Date: 01/08/24 Order Info: 666-06 - BMP Order Info: [id number] - LIPID Result Comment: Non- GFR Calc Performed By: #### L 501.9520, L500.4050, L100.0100, L101.9900 #### [facility] [address] [place], [address] Globulin (S) [Mass/Vol] 4.0 g/dL Normal 2.2-4.2 [facility] Comment on above: Order Comment: Order Date: 01/08/24 Order Info: 06 - BMP Order Info: [id number] - LIPID Performed By: #### L 501.9520, L500.4050, L100.0100, L101.9900 #### [facility] [address] [place], [address] Glucose [Mass/Vol] 106 mg/dL Normal 74-106 [facility] Comment on above: Order Comment: Order Date: 01/08/24 Order Info: 06- - BMP Order Info: [id number] - LIPID Result Comment: Fast ing Glucose result from 100 to 125 mg/dL suggests IMPAIRED HOMEOSTASIS per A.D.A. criteria. Performed By: #### L 501.9520, L500.4050, L100.0100, L101.9900 #### [facility] [address] [place], [address] Potassium [Moles/Vol] 4.1 mmol/L Normal 3.5-5.1 [facility] Comment on above: Order Comment: Order Date: 01/08/24 Order Info: 0667-1 - BMP Order Info: [id number] - LIPID Performed By: #### L 501.9520, L500.4050, L100.0100, L101.9900 #### [facility] [address] [place], [address] Sodium [Moles/Vol] 135 mmol/L Low 136-145 [facility] Comment on above: Order Comment: Order Date: 01/08/24 Order Info: 0667-1 - BMP Order Info: [id number] - LIPID Performed By: #### L 501.9520, L500.4050, L100.0100, L101.9900 #### [facility] [address] [place], [address] T PROT 7.6 g/dL Normal 6.4-8.2 [facility] Comment on above: Order Comment: Order Date: 01/08/24 Order Info: 0667-1 - BMP Order Info: [id number] - LIPID Performed By: #### L 501.9520, L500.4050, L100.0100, L101.9900 #### [facility] [address] [place], [address] Urea nitrogen [Mass/Vol] 18 mg/dL Normal 7-18 [facility] Comment on above: Order Comment: Order Date: 01/08/24 Order Info: 0667-1 - BMP Order Info: [id number] - LIPID Performed By: #### L 501.9520, L500.4050, L100.0100, L101.9900 #### [facility] [address] [place], [address] Lipid Profileon 05-20-2024 Cholesterol [Mass/Vol] 108 mg/dL Normal 200 [facility] Comment on above: Order Comment: Order Date: 01/08/24 Order Info: 0667 - BMP Order Info: [id number] - LIPID Result Comment: <200 mg/dL Desirable 200-240 mg/dL Borderline >240 mg/dL High Risk Performed By: #### L 500.4100 #### [facility] [address] [place], [address] Cholesterol in HDL [Mass/Vol] 33 mg/dL Low [facility] Comment on above: Order Comment: Order Date: 01/08/24 Order Info: 666-06 - BMP Order Info: [id number] - LIPID Result Comment: The drugs N-Acetylcysteine and Metamizole may falsely depress this assay. Reference Range HDL <40 mg/dL Low HDL Cholesterol HDL >or= 60 mg/dL High HDL Cholesterol Performed By: #### L 500.4100 #### [facility] [address] [place], [address] Cholesterol in LDL [Mass/Vol] 52 mg/dL Normal 0-130 [facility] Comment on above: Order Comment: Order Date: 01/08/24 Order Info: 0667- - BMP Order Info: [id number] - LIPID Performed By: #### L 500.4100 #### [facility] [address] [place], [address] Cholesterol in VLDL [Mass/Vol] 23 mg/dL Normal 5-40 [facility] Comment on above: Order Comment: Order Date: 01/08/24 Order Info: 06 - BMP Order Info: [id number] - LIPID Performed By: #### L 500.4100 #### [facility] [address] [place], [address] Triglyceride [Mass/Vol] 116 mg/dL Normal [facility] Comment on above: Order Comment: Order Date: 01/08/24 Order Info: 0667-1 - BMP Order Info: [id number] - LIPID Result Comment: The drugs N-Acetylcysteine and Metamizole may falsely depress this assay. Serum Triglycerides Reference Interval Normal <150 mg/dL Borderline high 150 - 199 mg/dL High 200 - 499 mg/dL Very High > or = 500 mg/dL Performed By: #### L 500.4100 #### [facility] [address] [facility] [place], [address] Thyroid Stim Hormone (TSH)on 05-20-2024 TSH 0.761 uIU/mL Normal 0.358-3.740 [facility] Comment on above: Order Comment: Order Date: 01/08/24 Order Info: [id number] - BMP Order Info: [id number] - LIPID Performed By: #### L 501.9520, L500.4050, L100.0100, L101.9900 #### [facility] [address] [facility] [place], [address] Basophil percentageOrdered B y: Lesly Powell on 09-03-2023 Basophil percentage 3.81 ng/mL 0.0-4.0 [facility] Comment on above: This test was perfor med using the TPSA assay method [facility]. Values obtained with differentassay methods cannot be used interchangably.When changing PSA assays in the course of monitoring apatient, additional sequential testing should be carriedout to confirm baseline values. Basophil percentageOrdered B y: Bowen Robles on 02-01-2023 Chloride [Moles/Vol] 104 mmol/L 98-107 [facility] Cholesterol [Mass/Vol] 155 mg/dL <200 [facility] Comment on above: <200 mg/dL Desirable 200-240 mg/dL Borderline >240 mg/dL High Risk Glucose [Mass/Vol] 105 mg/dL 74-106 [facility] Comment on above: Fasting Glucose resu lt from 100 to 125 mg/dL suggests IMPAIRED HOMEOSTASIS per A.D.A. criteria. Potassium [Moles/Vol] 4.4 mmol/L 3.5-5.1 [facility] Sodium [Moles/Vol] 138 mmol/L 136-145 [facility] Triglyceride [Mass/Vol] 85 mg/dL <199 [facility] Comment on above: The drugs N-Acetylcy steine and Metamizole may falsely depress this assay.Serum Triglycerides Reference Interval Normal <150 mg/dL Borderline high 150 - 199 mg/dL High 200 - 499 mg/dL Very High > or = 500 mg/dL WBC (Bld) [#/Vol] 11.7 10*3/uL 4.4-11.0 [facility] Blood erythrocytes count (nu mber/volume)Ordered By: Bowen Robles on 02-01-2023 RBC (Bld) [#/Vol] 5.02 10*6/uL 4.6-6.2 [facility] Blood hemoglobin measurement (mass/volume)Ordered By: Bowen Robles on 02-01-2023 Hemoglobin (Bld) [Mass/Vol] 14.9 g/dL 13.0-16.5 [facility] Blood manual differential co mment interpretation (narrative result)Ordered By: Bowen Robles on 02-01-2023 Manual differential comment Alejandro (Bld) [Interp] COMMENT [facility] Comment on above: THROMBOCYTOPENIA. Blood platelet mean volumeOr dered By: Bowen Robles on 02-01-2023 Platelet mean volume (Bld) [Entitic vol] 13.9 fL 6.2-12.0 [facility] Determination of erythrocyte mean corpuscular volume (MCV)Ordered By: Bowen Robles on 02-01-2023 MCV (RBC) [Entitic vol] 88.6 fL 80-94 [facility] Hematocrit Auto (Bld) [Volum e fraction]Ordered By: Bowen Robles on 02-01-2023 Hematocrit (Bld) [Volume fraction] 44.5 % 40-54 [facility] - Chemistry and C hemistry - challengeOrdered By: Bowen Robles on 02-01-2023 CO2 [Moles/Vol] 28.0 mmol/L 21.0-32.0 [facility] Urea nitrogen/Creatinine [Mass ratio] 11.4 mg/mg 10- [facility] - Hematology and Cell countsOrdered By: Bowen Rboles on 02-01-2023 Erythrocyte distribution width (RBC) [Entitic vol] 42.0 fL 35.1-43.9 [facility] Erythrocyte distribution width (RBC) [Ratio] 12.9 % 11.6-14.6 [facility] MCH (RBC) [Entitic mass] 29.7 pg 27.0-32.0 [facility] MCHC Auto (RBC) [Mass/Vol]Or dered By: Bowen Robles on 02-01-2023 MCHC (RBC) [Mass/Vol] 33.5 g/dL 32-36 [facility] No Panel InformationOrdered By: Bowen Robles on 02-01-2023 Estimated GFR (MDRD) Amer 69 mL/min >60 [facility] Comment on above: GFR Calc Estimated GFR (MDRD) Non-Af Amer 57 mL/min >60 [facility] Comment on above: Non- GFR Calc Prostate Specific Antigen Total 4.78 ng/mL 0.0-4.0 [facility] Comment on above: This test was perfor med using the TPSA assay method for [employer] chemistry system. Values obtained with differentassay methods cannot be used interchangably.When changing PSA assays in the course of monitoring apatient, additional sequential testing should be carriedout to confirm baseline values. Platelets bldOrdered By: Nayely Robles on 02-01-2023 Platelets (Bld) [#/Vol] 47 10*3/uL 150-450 [facility] Comment on above: CRITICAL VALUE VERIF IED. CALLED TO YOLANDE MENDIOLA ([facility])02/01/23 10[address] [place].RESULTS READ BACK BY SAME. Review by pathologistOrdered By: Bowen Robles on 02-01-2023 Pathologist review Alejandro (Unsp spec) [Interp] Reviewed [facility] Comment on above: Previous reported re sult: Christy looney Edited by: RGOOD on 02/02/23:1418Leukocytosis.Marked Thrombocytopenia.Clinical correlation necessary.Angel Lamb M.D. 02/02/23 AMENDED REPORT 02/02/23 1418 PATH REV previously reported as: May foll Serum or plasma calcium jacqueline urement (mass/volume)Ordered By: Bowen Robles on 02-01-2023 Calcium [Mass/Vol] 9.4 mg/dL 8.5-10.1 [facility] Serum or plasma cholesterol in HDL measurement (mass/volume)Ordered By: Bowen Robles on 02-01-2023 Cholesterol in HDL [Mass/Vol] 35 mg/dL >40 [facility] Comment on above: The drugs N-Acetylcy steine and Metamizole may falsely depress this assay. Reference Range HDL <40 mg/dL Low HDL Cholesterol HDL >or= 60 mg/dL High HDL Cholesterol Serum or plasma cholesterol in VLDL measurement (mass/volume)Ordered By: Bowen Robles on 02-01-2023 Cholesterol in VLDL [Mass/Vol] 17 mg/dL 5-40 [facility] Serum or plasma creatinine m easurement (mass/volume)Ordered By: Bowen Robles on 02-01-2023 Creatinine [Mass/Vol] 1.32 mg/dL 0.70-1.30 [facility] Comment on above: The validity of the calculated GFR & GFRAA in patients over 70 years has not been determined. Clinical correlation is essential. Serum or plasma low density lipoprotein (LDL) cholesterol measurement (mass/volume)Ordered By: Bowen Robles on 02-01-2023 Cholesterol in LDL [Mass/Vol] 103 mg/dL 0-130 [facility] Serum or plasma urea nitroge n measurement (mass/volume)Ordered By: Bowen Robles on 02-01-2023 Urea nitrogen [Mass/Vol] 15 mg/dL 7-18 [facility] Thin prep Papanicolaou smear with manual screeningOrdered By: Bowen Robles on 02-01-2023 Thin prep Papanicolaou smear with manual screening 6 5-15 [facility] Absolute lymphocyte counton 04-25-2022 Lymphocytes Auto (Unsp spec) [#/Vol] 1.22 10*3/uL 0.83-4.51 [facility] Work Phone: Basophil percentageon 2021 Basophils/100 WBC (Bld) 0.8 % 0-1 [facility] Work Phone: Bilirubin [Mass/Vol] 0.60 mg/dL 0.20-1.00 [facility] Work Phone: Comment on above: For patients on eltr ombopag therapy, use of Dimension [place] TBIL is not recommended. Chloride [Moles/Vol] 104 mmol/L 98-107 [facility] Work Phone: Cholesterol [Mass/Vol] 172 mg/dL <200 [facility] Work Phone: Comment on above: <200 mg/dL Desirable 200-240 mg/dL Borderline >240 mg/dL High Risk Eosinophils/100 WBC (Bld) 1.6 % 0-5 [facility] Work Phone: Glucose [Mass/Vol] 101 mg/dL 74-106 [facility] Work Phone: Comment on above: Fasting Glucose resu lt from 100 to 125 mg/dL suggests IMPAIRED HOMEOSTASIS per A.D.A. criteria. Neutrophils (Bld) [#/Vol] 8.2 10*3/uL 2.0-7.7 [facility] Work Phone: Neutrophils/100 WBC (Bld) 77.1 % 47-70 [facility] Work Phone: Potassium [Moles/Vol] 4.0 mmol/L 3.5-5.1 [facility] Work Phone: Protein [Mass/Vol] 7.6 g/dL 6.4-8.2 [facility] Work Phone: Sodium [Moles/Vol] 137 mmol/L 136-145 [facility] Work Phone: Triglyceride [Mass/Vol] 114 mg/dL <199 [facility] Work Phone: Comment on above: The drugs N-Acetylcy steine and Metamizole may falsely depress this assay.Serum Triglycerides Reference Interval Normal <150 mg/dL Borderline high 150 - 199 mg/dL High 200 - 499 mg/dL Very High > or = 500 mg/dL WBC (Bld) [#/Vol] 10.6 10*3/uL 4.4-11.0 [facility] Work Phone: Comment on above: RESULTS CALLED TO ZARA POLLARD RN MTP 04/25/22 1028 Carly Vital.REPORT READ BACK BY SAME. Blood erythrocytes count (nu mber/volume)on 04-25-2022 RBC (Bld) [#/Vol] 5.21 10*6/uL 4.6-6.2 [facility] Work Phone: Blood hemoglobin measurement (mass/volume)on 04-25-2022 Hemoglobin (Bld) [Mass/Vol] 15.8 g/dL 13.0-16.5 [facility] Work Phone: Blood lymphocytes/100 leukoc yteson 04-25-2022 Lymphocytes/100 WBC (Bld) 11.5 % 19-41 [facility] Work Phone: Blood monocytes/100 leukocyt eson 04-25-2022 Monocytes/100 WBC (Bld) 8.2 % 0-10 [facility] Work Phone: Blood platelet adequacy dete ction by light microscopyon 04-25-2022 Platelets LM Ql (Bld) MKD DEC ADEQ [facility] Work Phone: Blood platelet mean volumeon 04-25-2022 Platelet mean volume (Bld) [Entitic vol] 13.8 fL 6.2-12.0 [facility] Work Phone: Blood platelet morphology de termination (nominal result)on 04-25-2022 Platelet morphology finding Nom (Bld) LARGE [facility] Work Phone: Determination of erythrocyte mean corpuscular volume (MCV)on 04-25-2022 MCV (RBC) [Entitic vol] 85.0 fL 80-94 [facility] Work Phone: Hematocrit Auto (Bld) [Volum e fraction]on 04-25-2022 Hematocrit (Bld) [Volume fraction] 44.3 % 40-54 [facility] Work Phone: Laboratory - Chemistry and C hemistry - challengeon 04-25-2022 ALP [Catalytic activity/Vol] 78 U/L 45-117 [facility] Work Phone: ALT [Catalytic activity/Vol] 24 U/L 16-61 [facility] Work Phone: CO2 [Moles/Vol] 27.0 mmol/L 21.0-32.0 [facility] Work Phone: Globulin (S) [Mass/Vol] 3.8 g/dL 2.2-4.2 [facility] Work Phone: Urea nitrogen/Creatinine [Mass ratio] 13.3 mg/mg 10-20 [facility] Work Phone: Laboratory - Hematology and Cell countson 04-25-2022 Erythrocyte distribution width (RBC) [Entitic vol] 40.1 fL 35.1-43.9 [facility] Work Phone: Erythrocyte distribution width (RBC) [Ratio] 13.0 % 11.6-14.6 [facility] Work Phone: Immature granulocytes/100 WBC (Bld) 0.800 % 0.0-0.9 [facility] Work Phone: Comment on above: IG% - Immature Granu locytes (promyelocytes, myelocytes and metamyelocytes) > 1% indicates that a LEFT SHIFT is Present. MCH (RBC) [Entitic mass] 30.3 pg 27.0-32.0 [facility] Work Phone: Nucleated RBC/100 WBC (Bld) [Ratio] 0 % 0-5 [facility] Work Phone: MCHC Auto (RBC) [Mass/Vol]on 04-25-2022 MCHC (RBC) [Mass/Vol] 35.7 g/dL 32-36 [facility] Work Phone: No Panel Informationon 04-25 Estimated GFR (MDRD) Amer 90 mL/min >60 [facility] Work Phone: Comment on above: GFR Calc Estimated GFR (MDRD) Non-Af Amer 74 mL/min >60 [facility] Work Phone: Comment on above: Non- GFR Calc Prostate Specific Antigen Screen 4.24 ng/mL 0.00-4.00 [facility] Work Phone: Comment on above: This test was perfor med using the TPSA assay method for theNoDaysOff chemistry system. Values obtained with differentassay methods cannot be used interchangably.When changing PSA assays in the course of monitoring apatient, additional sequential testing should be carriedout to confirm baseline values. Platelets bldon 04-25-2022 Platelets (Bld) [#/Vol] 45 10*3/uL 150-450 [facility] Work Phone: Serum or plasma albumin jacqueline urement (mass/volume)on 04-25-2022 Albumin [Mass/Vol] 3.8 g/dL 3.2-5.0 [facility] Work Phone: Serum or plasma albumin/glob ulin mass ratioon 04-25-2022 Albumin/Globulin [Mass ratio] 1.0 {ratio} 0.9-2.4 [facility] Work Phone: Serum or plasma calcium jacqueline urement (mass/volume)on 04-25-2022 Calcium [Mass/Vol] 8.9 mg/dL 8.5-10.1 [facility] Work Phone: Serum or plasma cholesterol in HDL measurement (mass/volume)on 04-25-2022 Cholesterol in HDL [Mass/Vol] 33 mg/dL >40 [facility] Work Phone: Comment on above: The drugs N-Acetylcy steine and Metamizole may falsely depress this assay. Reference Range HDL <40 mg/dL Low HDL Cholesterol HDL >or= 60 mg/dL High HDL Cholesterol Serum or plasma cholesterol in VLDL measurement (mass/volume)on 04-25-2022 Cholesterol in VLDL [Mass/Vol] 23 mg/dL 5-40 [facility] Work Phone: Serum or plasma creatinine m easurement (mass/volume)on 04-25-2022 Creatinine [Mass/Vol] 1.05 mg/dL 0.70-1.30 [facility] Work Phone: Comment on above: The validity of the calculated GFR & GFRAA in patients over 70 years has not been determined. Clinical correlation is essential. Serum or plasma low density lipoprotein (LDL) cholesterol measurement (mass/volume)on 04-25-2022 Cholesterol in LDL [Mass/Vol] 116 mg/dL 0-130 [facility] Work Phone: Serum or plasma urea nitroge n measurement (mass/volume)on 04-25-2022 Urea nitrogen [Mass/Vol] 14 mg/dL 7-18 [facility] Work Phone: Thin prep Papanicolaou smear with manual screeningon 04-25-2022 Thin prep Papanicolaou smear with manual screening 17 U/L 15-37 [facility] Work Phone: Thin prep Papanicolaou smear with manual screening 6 5-15 [facility] Work Phone: Thin prep Papanicolaou smear with manual screening 10.7 mg/L NO RANGE EST. [facility] Work Phone: Encounters Encounter Date Encounter Type Care Provider Facility Start: 02-03-2025 ambulatory [facility] [place] Start: 05-20-2024 End: 05-20-2024 ambulatory [facility] Facility:[facility] Start: 09-03-2023 End: 09-03-2023 ambulatory [facility] Work Phone: Start: 09-03-2023 End: 09-03-2023 Patient encounter procedure [facility] Work Phone: Start: 02-01-2023 End: 02-01-2023 ambulatory [facility] Work Phone: Start: 02-01-2023 End: 02-01-2023 Patient encounter procedure [facility] [place] Work Phone: Start: 04-25-2022 End: 04-25-2022 ambulatory [facility] Work Phone: Start: 04-25-2022 End: 04-25-2022 Patient encounter procedure [facility] [place] Procedures Date Procedure Procedure Detail Performing Clinician Laboratory test result abnormal Abnormal laboratory test Payers Date Payer Category Payer Medicare [id number] 2024 Self-pay [id number] 2024 Unknown [id number] Medicare MEDICARE A ONLY [id number] Private Health Insurance [employer]ET[employer] [id number] Unknown [facility] PACKAGE PLAN [id number] Unknown [id number] Unknown [id number] Social History Date Type Detail Facility Start: 10-16-2019 End: 10-16-2019 Tobacco smoking status NHIS Unknown if ever smoked [facility] Start: 10-16-2019 Cigarettes [facility] Start: 1950 Sex Assigned At Male [facility] Medical Equipment Procedure Code Equipment Code Equipment Origin al Text Equipment Identifier Dates 132 NECK ANGLE H IP STEM FDA Start: 08-12-2019 6.5MM LOW PROFIL E HEX SCREW FDA Start: 08-12-2019 CERAMIC V40 FEMO RAL HEAD FDA Start: 08-12-2019 CLUSTERHOLE ACETABULAR SHELL FDA Start: 08-12-2019 TRIDENT X3 ECCEN TRIC INSERT FDA Start: 08-12-2019 132 NECK ANGLE H IP STEM FDA Start: 08-12-2019 6.5MM LOW PROFIL E HEX SCREW FDA Start: 08-12-2019 CERAMIC V40 FEMO RAL HEAD FDA Start: 08-12-2019 CLUSTERHOLE ACETABULAR SHELL FDA Start: 08-12-2019 TRIDENT X3 ECCEN TRIC INSERT FDA Start: 08-12-2019 132 NECK ANGLE H IP STEM FDA Start: 08-12-2019 6.5MM LOW PROFIL E HEX SCREW FDA Start: 08-12-2019 CERAMIC V40 FEMO RAL HEAD FDA Start: 08-12-2019 CLUSTERHOLE ACETABULAR SHELL FDA Start: 08-12-2019 TRIDENT X3 ECCEN TRIC INSERT FDA Start: 08-12-2019 Evaluation note Note Date & Type Note Facility Evaluation note No assessment information availa [facility] Work Phone: Advance Directives No Advanced Directives Records Found Advance Directive Response Recorded Date/ Time Living Will No August 12 020 12:52pm Power of Frame Carver Spindle No August 12, 2019 12:52pm Advance Directive Response Recorded Date/ Time Living Will No August 25, 2019 10:04am Power of Frame Carver Spindle No August 24 0 10:04am Chief Complaint and Reason for Visit Chief Complaint EORDER Chief Complaint PSA Summary Purpose Family History No Family History Records Found Additional Source Comments Goals (unrecognized section and content) Goals may be documented in a n alternate sectionGoals may be documented in an alternate sectionGoals may be documented in an alternate section Care Teams (unrecognized sec tion and content) Team Status: Active Member Role Status Dates Dr. Bowen Robles MD Family Provider Active Dr. Bowen Robles MD Primary Care Provider Activ e Team Status: Inactive Member Role Status Dates Dr. Bowen Robles MD Primary Care Provider, Atte aking Provider Active Team Status: Inactive Member Role Status Dates Dr. Bowen Robles MD Primary Care Provider Activ e Lesly Powell Attending Provider, Referring Provide r Active (unrecognized sect ion and content) No Status Records Found INFORMATION SOURCE (unrecogn ized section and content) DATE CREATED AUTHOR 01/24/2025 [facility] FOR RECORDS PERTAINING TO PATIENTS WHO ARE OR HAVE BEEN ENROLLED IN A CHEMICAL DEPENDENCY/SUBSTANCEABUSE PROGRAM, SOME INFORMATION MAY BE OMITTED. This clinical summary was aggregated from multiple sources. Caution should be exercised in using it in the provision of clinical care. This summary normalizes information from multiple sources, and as a consequence, information in this document may materially change the coding, format and clinical context of patient data. In addition, data may be omitted in some cases. CLINICAL DECISIONS SHOULD BE BASED ON THE PRIMARY CLINICAL RECORDS. [facility]. provides no warranty or guarantee of the accuracy or completeness of information in this document.
== END | disposition home or self-care (01) ==
LOC: LAB 09:41
PROVIDERS: PCP Family Medicine; Referring Provider Internal Medicine Medical Oncology; Visit Provider Internal Medicine Medical Oncology
DX: D69.3 Immune thrombocytopenic purpura (principal)
CPT/HCPCS: 85049

== ENCOUNTER → 2025-02-03 | Outpatient (CLI) | payer MEDICARE, OTHER, SELFPAY ==
--- NOTE | 2025-02-03 13:09 | CT_ITS ---
PROCEDURE: LOW DOSE CT LUNG SCREENING 02/03/2025 REASON FOR EXAM: SMOKER > 50 YEARS. 2 packs per day. TECHNIQUE: LOW DOSE CT LUNG SCREENING Coronal and Sagittal reconstruction series were provided. One or more dose reduction techniques were used (e.g., Automated exposure control, adjustment of the mA and/or kV according to patient size, use of iterative reconstruction technique). REFERENCE LINK: [employer] Lung-RADS RADIATION DOSE SUMMARY: CTDlvol: 4.02 mGy DLP: 160.04 mGycm COMPARISON: Prior study dated June 22, 2020. FINDINGS: PULMONARY NODULES: (Only nodules >3mm are reported) Nodules described below are on series 1 unless otherwise specified. Pulmonary Nodules: No suspicious nodules are seen. There is a 3 mm calcific granuloma in the peripheral aspect of the right upper lobe as seen on axial image number 180 stable 2 mm noncalcified nodule in the anterior aspect of the right upper lobe as seen on axial image number 191 Hardware:None Lymph Nodes:No significant lymph nodes are seen. Heart and Vasculature:The heart is nonenlarged. Coronary Artery Calcifications: Present Lungs and Airways: Mild emphysematous changes are present. Pleura:Unremarkable Upper Abdomen:Unremarkable Bones:Degenerative changes of the thoracic spine. CT/Low Dose CT Lung Screening IMPRESSION: Stable examination Coronary artery calcification (CAC) is is present Lung-RADS Category: 2 BENIGN (BASED ON IMAGING FEATURES OR INDOLENT BEHAVIOR). RECOMMEND 12-MONTH SCREENING LDCT. Other Significant Findings: Reading Location: [place] [address]
== END | disposition home or self-care (01) ==
PROVIDERS: PCP Family Medicine; Referring Provider Family Medicine; Visit Provider Family Medicine
DX: Z72.0 Tobacco use (principal); F17.210 Nicotine dependence, cigarettes, uncomplicated
CPT/HCPCS: 71271

== ENCOUNTER → 2025-02-24 | Outpatient (CLI) | payer MEDICARE, OTHER, SELFPAY ==
[2025-02-24 15:26] LABS: Hematocrit 34.8 % (40-54); Hemoglobin 12.1 g/dL (13.0-16.5); Mean Corp Hgb Conc 34.8 g/dL (32-36); Mean Corpuscular Volume 81.7 fL (80-94); Mean Platelet Vol. 11.8 fl (6.2-12.0); Platelet Count 201 K/mm3 (150-450); RBC Distribution Width CV 13.4 % (11.6-14.6); RBC Distribution Width SD 40.2 fl (35.1-43.9); Red Blood Count 4.26 M/mm3 (4.6-6.2); White Blood Count 18.0 K/mm3 (4.4-11.0)
== END | disposition home or self-care (01) ==
LOC: MFPLAB 12:32
PROVIDERS: PCP Family Medicine; Referring Provider Family Medicine; Visit Provider Family Medicine
DX: D69.3 Immune thrombocytopenic purpura (principal)
CPT/HCPCS: 36415; 85027